=== PATIENT | female | born 1975 | race Caucasian/White ===

== ENCOUNTER 2019-09-02 10:08 | Outpatient (RCR) | payer OTHER, MEDICARE, SELFPAY ==
--- NOTE | 2019-09-02 11:03 | PTOPEVAL ---
Thank you for referring Dea Garcia to [facility]. Please review, sign, date and return this plan of care RODRÍGUEZ. I agree with and certify that the following plan of care is medically necessary. Referring Physician Date Admitting Provider: Attending Provider: Al Brito MD Referring Provider: *PT Outpatient Evaluation Start: 09/02/19 10:11 Freq: Status: Active Protocol: Document 09/02/19 10:11 JESSICA (Rec: 09/02/19 11:03 JESSICA [id number]) Therapy Assessment Status Assessment Status Assessment Status Evaluation Evaluation Information Problem Diagnosis chronic venous edema Onset 08/16/19 Subjective Information Pt. reports she enters today Query Text:As Reported By Patient/ because she needs new stocking Family to control edema. She has noticed recent increase in swelling. She states that she has no current stockings, except for tubigrip stocking that she recieved from therapy a long time ago. She reports mild weakness in her legs. She reports that she does not want to participate in any therapy at this time. Pain Assessment Self Report Self Report Pain Level 0 Pain Score Pain Score 0: Self Report Lower Extremity Muscle Strength Testing General Lower Extremity Strength Gross Lower Extremity Strength bilateral hip flexion 4+/5, bilateral knee flexion 4+/5, bilateral knee extension 4+/5, bilateral ankle dorsiflexion 4+/5 Edema Assessment Location Bilateral Lower Leg(s) Edema Degree 1+ (2 mm or less) Extremity Circumference Assessment Circumference Assessment Location Right Body Part Calf Circumference Comments above the malleoli- 28 cm on the right and 30 cm on the left widest calf- 48cm on the right and 49cm on the left popliteal fossa to floor- 45cm on the right and 45cm on the left Gait Assessment Gait Assessment Ambulation Assistive Devices Cane Weight Bearing Status - Left Full Weight Bearing Status - Right Full Maintains Weight Bearing Status Yes Ambulation Destination In Corridor Ambulation Ability Independe
== END 2019-09-02 14:22 | disposition home or self-care (01) ==
LOC: CHSPT 10:08
PROVIDERS: PCP Internal Medicine; Visit Provider Internal Medicine
DX: R60.9 Edema, unspecified (principal)
CPT/HCPCS: 97161

== ENCOUNTER 2020-07-22 13:45 | Outpatient (CLI) | payer OTHER, MEDICARE, SELFPAY ==
--- NOTE | ~2020-07-22 | XR_ITS ---
XR femur RT min 2V DATE: 07/22/2020 14:20 INDICATION: Chronic right leg pain TECHNIQUE: AP and lateral views COMPARISON: 12/27/2018 right femur FINDINGS: There is approximately 6.7 cm vertical dimension up to 1.3 cm transverse dimension scleroti c lesion of the distal lateral femoral diametaphysis, likely benign sclerotic fibrous cortical defect , stable since 12/27/2018. There is a stable sclerotic lesion of the medial left tibial metaphysis, unchanged since 12/27/2018. No fracture, dislocation, periosteal reaction or bone destruction of the right femur. Normal alignmen t at the right hip and knee joints. IMPRESSION: Stable chronic benign sclerotic lesions of the distal femoral diametaphysis and proximal medial tibial metaphysis, unchanged since 12/27/2018 Reviewed, dictated and finalized at location A. IMPRESSION: Stable chronic benign sclerotic lesions of the distal femoral diame taphysis and proximal medial tibial metaphysis, unchanged since 12/27/2018
--- NOTE | ~2020-07-22 | XR_ITS ---
EXAMINATION: XR knee RT 3V DATE: 07/22/2020 14:21 INDICATION: Right femoral lesion. TECHNIQUE: 3 views of right knee were obtained. COMPARISON: Right knee radiographs 01/19/2014, right tibia and fibula radiographs 07/06/2011 FINDINGS: Bone alignment is normal. No fracture. There is a peripheral sclerotic lesion in distal fem oral metaphysis laterally. There is a peripheral sclerotic lesion in proximal tibial metaphysis poste romedially. There is mild osteoarthritis of medial and lateral compartments characterized by tiny mar ginal osteophytes. No knee joint effusion. IMPRESSION: 1. 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 2. Mild right knee osteoarthritis. Reviewed, dictated and finalized at location A. IMPRESSION: 1. 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 2. Mild right knee osteoarthritis.
== END 2020-07-22 13:46 | disposition home or self-care (01) ==
LOC: CHSIMG 13:49
PROVIDERS: PCP Internal Medicine; Visit Provider Internal Medicine
DX: M89.9 Disorder of bone, unspecified (principal)
CPT/HCPCS: 73552; 73562

== ENCOUNTER 2021-04-08 12:41 | Outpatient (CLI) | payer OTHER, MEDICARE, SELFPAY ==
--- NOTE | ~2021-04-08 | XR_ITS ---
EXAMINATION: XR chest 2V 04/08/2021 13:26 INDICATION: Cough and sinusitis PROCEDURE: 2 view chest COMPARISON: 11/20/2013 FINDINGS: The lungs are clear. The cardiomediastinal silhouette is within normal limits. There are no pleural effusions. There is no pneumothorax suspected. IMPRESSION: 1: NO ACUTE CARDIOPULMONARY DISEASE. Reviewed, dictated and finalized at location A. RVISOR DENTURE DEPARTMENT
--- NOTE | ~2021-04-08 | XR_ITS ---
XR sinus <3V 04/08/2021 13:25 Indication: Cough and sinusitis. Procedure: 5 views of the paranasal sinuses Comparison: No prior studies for comparison. Findings: Paranasal sinuses are pneumatized. No significant opacification or air-fluid levels are dem onstrated. There is leftward nasal septal deviation. Orbits within normal limits. Surrounding osseous structures within normal limits. Impression: 1: No significant abnormality of the paranasal sinuses. Reviewed, dictated and finalized at location A. ICIST ACOUSTICS Impression: 1: No significant abnormality of the paranasal sinuses.
[2021-04-08 13:46] LABS: SARS-CoV-2 RNA PCR Negative (Negative)
== END 2021-04-08 12:42 | disposition home or self-care (01) ==
LOC: CHSLAB 12:45
PROVIDERS: PCP Internal Medicine; Visit Provider Internal Medicine
DX: R05.9 Cough, unspecified (principal); J32.9 Chronic sinusitis, unspecified; Z20.822 Contact with and (suspected) exposure to COVID-19
CPT/HCPCS: 70210; 71046; C9803; U0003; U0005

== ENCOUNTER 2021-05-17 14:32 | Outpatient (CLI) | payer MEDICARE, SELFPAY ==
--- NOTE | ~2021-05-17 | XR_ITS ---
EXAMINATION: XR chest 2V EXAM DATE: 05/17/2021 15:24 INDICATION: COUGH/SOB . TECHNIQUE: Frontal and lateral projections of the chest obtained and reviewed. Comparison is made to prior examination from 04/08/2021. FINDINGS: There is patchy small to moderate amount of bibasilar multifocal airspace disease. There ar e no pleural effusions. The cardiomediastinal silhouette is within normal limits. There is no pneum othorax suspected. The bones and soft tissues are unremarkable. IMPRESSION: Small to moderate amount of bibasilar airspace disease probably pneumonia. Reviewed, dictated and finalized at location G. MOTIVE PAINTER IMPRESSION: Small to moderate amount of bibasilar airspace disease probably pne umonia.
[2021-05-17 15:36] LABS: Basophils Absolute Auto 0.01 K/mm3 (0.00-0.10); Basophils Percent Auto 0.2 % (0.0-1.0); Eosinophils Absolute Auto 0.06 K/mm3 (0.02-0.50); Eosinophils Percent Auto 1.1 % (1.0-6.0); Hematocrit 43.6 % (35.0-49.0); Hemoglobin 14.1 g/dL (12.0-15.0); Immature Granulocyte Absolute 0.02 K/mm3 (0.00-0.00); Immature Granulocyte Percent A 0.4 % (0.0-0.0); Lymphocytes Absolute Auto 2.15 K/mm3 (1.10-4.50); Mean Corpuscular HGB Conc 32.3 g/dL (32.0-36.0); Mean Corpuscular Hemoglobin 29.9 pg (27.0-31.0); Mean Corpuscular Volume 92.6 fL (78.0-102.0); Mean Platelet Volume 10.9 fl (9.2-11.8); Monocytes Absolute Auto 0.47 K/mm3 (0.10-0.90); Monocytes Percent Auto 8.8 % (2.0-11.0); Neutrophils Absolute Auto 2.7 K/mm3 (1.7-7.2); Neutrophils Percent Auto 49.5 % (50.0-70.0); Platelet Count Result 199 K/mm3 (150-420); Red Blood Count 4.71 M/mm3 (4.20-5.40); Red Cell Distribution Width 14.6 % (11.6-14.4); White Blood Count 5.4 K/mm3 (4.8-10.8)
[2021-05-17 16:15] LABS: Influenza A QL RT-PCR Negative (Negative); Influenza B QL RT-PCR Negative (Negative); SARS-CoV-2 RNA PCR Positive (Negative)
[2021-05-17 16:29] LABS: Alanine Aminotransferase 55 U/L (14-59); Albumin Level 3.6 g/dL (3.4-5.0); Alkaline Phosphatase 135 U/L (46-116); Amylase 40 U/L (25-115); Anion Gap 13 mmol/L (8-16); Aspartate Amino Transferase 34 U/L (15-37); Bilirubin,Total 1.7 mg/dL (0.00-1.00); Blood Urea Nitrogen 11 mg/dL (7-18); Calcium 8.8 mg/dL (8.5-10.1); Carbon Dioxide 29 mmol/L (21-32); Chloride 96 mmol/L (98-108); Estimated Glomerular Filt Rate 40; Glucose 141 mg/dL (70-99); Lipase 115 U/L (73-393); Osmolality Calculated 287 mOsm/kg (285-295); Potassium 3.3 mmol/L (3.5-5.1); Sodium 138 mmol/L (136-145); Total Protein 7.2 g/dL (6.4-8.2)
== END 2021-05-17 14:33 | disposition home or self-care (01) ==
LOC: CHSLAB 14:38
PROVIDERS: PCP Internal Medicine; Visit Provider Internal Medicine
DX: U07.1 COVID-19 (principal); R05.9 Cough, unspecified; R10.9 Unspecified abdominal pain; R19.7 Diarrhea, unspecified
CPT/HCPCS: 36415; 71046; 80053; 82150; 83690; 85025; 87502; C9803; U0003; U0005

== ENCOUNTER 2021-05-17 17:33 | Emergency (ER) | payer MEDICARE, SELFPAY ==
[2021-05-17 18:00] VITALS: BP 154/89; PULSE 108; RESP 20; TEMP 36.5; O2SAT 98
--- NOTE | 2021-05-17 18:21 | ED.NAVMDI ---
HPI - Nausea/Vomiting/Diarrhea General Chief complaint: Nausea/Vomiting/Diarrhea Stated complaint: Dr Brito sent Time Seen by Provider: 05/17/21 18:23 Source: patient Mode of arrival: ambulatory Limitations: no limitations History of Present Illness HPI Narrative: this is a 45-year-old female that was sent to the ER by her primary care physician after she was evaluated via telemedicine, the patient had a positive COVID done today patient had CBC as well as a CMP performed today, the patient presents with a cough with 1 episode of vomiting with no nausea currently had an episode of diarrhea with the no fever chills her O2 sats are 98% on room air. No chest pain no abdominal pain no flank pain. MD elicited complaint: nausea, diarrhea and other ( cough and congestion) Related Data Home Medications Medication Instructions Recorded Confirmed Calcium With Vitamin D3 125 mcg PO DAILY 05/17/21 05/17/21 atorvastatin [Lipitor] 10 mg PO DAILY 05/17/21 05/17/21 glimepiride 2 mg PO DAILY 05/17/21 05/17/21 ketoconazole 1 applic TOPICAL BID 05/17/21 05/17/21 metformin 500 mg PO BID 05/17/21 05/17/21 metoprolol succinate 25 mg PO DAILY 05/17/21 05/17/21 montelukast 10 mg PO DAILY 05/17/21 05/17/21 semaglutide [Rybelsus] 14 mg PO DAILY 05/17/21 05/17/21 spironolacton-hydrochlorothiaz 25 tablet PO DAILY 05/17/21 05/17/21 Allergies Allergy/AdvReac Type Severity Reaction Status Date / Time No Known Allergies Allergy Unknown Verified 05/17/21 18:03 Review of Systems Review of Systems: All systems reviewed & are unremarkable except as noted in HPI and below PMFSH Past Medical History Medical History Diabetes mellitus Family History Family History Father Hypertension Family history of elevated blood lipids Family history of diabetes mellitus in first degree relative Mother Hypertension Family history of elevated blood lipids Cerebrovascular accident Family history of diabetes mellitus in first degree relative Family history of coronary artery disease, Onset Age: 200 Patient's mother is Grandparent Cerebrovascular accident Carcinoma of colon, Onset Age: 53 Family history of coronary artery disease Other Diabetes mellitus Family history of cardiovascular disease Family history of malignant neoplasm Social History Social History Smoking status: Never smoker Alcohol intake: never Exam Const: General: healthy appearing, no acute distress and alert Orientation/consciousness: patient oriented x3 HENMT: Head: normal to inspection Eyes: Pupils: Equal, round and reactive pupils present EOM: EOMs intact bilaterally Direct Ophthalmoscopy: no photophobia Neck: Neck: normal visual inspection, no lymphadenopathy and no meningeal signs Chest: Chest palpation & inspection: normal inspection of the chest Resp: Effort & Inspection: normal respiratory effort Auscultation: clear to auscultation bilaterally Cardio: Rate: regular rate Rhythm: regular rhythm GI: GI Palp: Yes Soft to palpation Percussion: Yes normal to percussion : General: Yes no CVA tenderness Urinary Catheter: Urinary Catheter: patent and draining Back/Spine/Pelvis: Back: no CVA tenderness Skin: General skin exam: normal color Rashes: no rashes Neuro: General: patient oriented x3 Extrem: General: normal to inspection and no pedal edema Psych: Mental Status: mental status grossly normal Affect: normal affect Thought content: Yes Normal thought content present Course Course Emergency Course: labs x-rays reviewed with patient patient is positive for COVID x-ray shows that airspace disease possibly pneumonia will give a dose of ceftriaxone. Vital Signs Vital signs: Vital Signs Temperature 36.5 C 05/17/21 18:00 Pulse Rate 108 H 05/17/21
[2021-05-17] MEDS: SODIUM CHLORIDE 0.9% IV 1,000 ML 999 ML IV CONT (18:39)
[2021-05-17] MEDS: POTASSIUM CHLORIDE 20 MEQ TABLET 40 MEQ PO (19:20)
--- NOTE | 2021-05-17 19:20 | PC.NURSE ---
Report given to Tk MEDINA
--- NOTE | 2021-05-17 19:30 | PC.NURSE ---
Took report on pt at this time. SD/C orders alredy recieved. Pt resting comfortable on stretcher. IV infusing. No complaints of pain or discomfort lthus far.
[2021-05-17 20:27] VITALS: BP 138/97; PULSE 106; RESP 24; TEMP 36.5; O2SAT 97
== END 2021-05-17 20:29 | disposition home or self-care (01) ==
PROVIDERS: Emergency Provider Emergency Medicine; PCP Internal Medicine
DX: U07.1 COVID-19 (principal); J18.9 Pneumonia, unspecified organism; E11.9 Type 2 diabetes mellitus without complications
CPT/HCPCS: 36415; 71046; 80053; 82150; 83690; 85025; 87502; 96361; 96374; 99283; 99284; A9270; C9803; J0696; J7030; U0003; U0005

== ENCOUNTER 2021-05-26 09:58 | Outpatient (CLI) | payer MEDICARE, SELFPAY ==
--- NOTE | ~2021-05-26 | CT_ITS ---
EXAMINATION: CT abdomen pelvis wo con DATE: 05/26/2021 10:37 INDICATION: Epigastric pain, nausea, vomiting, diarrhea for one to 2 weeks TECHNIQUE: Computed tomography (CT) of the abdomen and pelvis was performed without intravenous contr ast. Automated exposure control and iterative reconstruction technique were employed. Exam dose: 133 1.97 mGy-cm total exam DLP. COMPARISON: None. FINDINGS: There are occasional focal areas of infiltrate, atelectasis and/or fibrotic change in the p eripheral lower lung zones, right greater than left. Normal heart size. No pericardial or pleural effusion. Status post cholecystectomy. No bile duct dilatation. There is hepatomegaly and diffuse hepatic steatosis. Status post cholecystectomy. Normal splenic size. No pancreatic mass lesion, calcification or ductal dilatation. Normal morphology of the adrenal glands. No renal mass lesion or urinary tract calculus or hydroureteronephrosis. The urinary bladder is relat ively evacuated, unremarkable. The left ovary is not visualized. The right ovary measures approximately 3.9 x 5.4 cm dimension. The uterus is unremarkable. Normal caliber of the abdominal aorta. No intraperitoneal or retroperitoneal or pelvic mass lesion or adenopathy or ascites. Normal appendix. Mild colonic diverticulosis; no CT evidence of diverticulitis. No bowel obstruction is detected. No intraperitoneal free air. There is a prominent fat-containing midline ventral infraumbilical abdominal wall hernia measuring up to 8.2 cm transverse dimension, 5.4 cm anteroposterior dimension and up to 9.4 cm vertical height. T he mouth of this hernia measures approximately 1.3 cm. There is mildly increased density of fat withi n and surrounding this hernia and in the subjacent anterior intraperitoneal or mesenteric fat, which may indicate some inflammation or fat necrosis due to incarceration. Degenerative changes of the thoracic spine. Severe degenerative disc disease at L5-S1. No suspicious osteolytic or osteoblastic lesions. IMPRESSION: Large midline infraumbilical fat-containing ventral abdominal wall hernia with some infl ammation, which may be indicative of incarceration Hepatomegaly, hepatic steatosis Status post cholecystectomy Mild colonic diverticulosis; no evidence of diverticulitis Reviewed, dictated and finalized at Location A. Reviewed, dictated and finalized at location A. NING AND DEVELOPMENT OFFICER IMPRESSION: Large midline infraumbilical fat-containing ventral abdominal wall hernia with some inflammation, which may be indicative of incarceration Hepatomegaly, hepatic steatosis Status post cholecystectomy Mild colonic diverticulosis; no evidence of diverticulitis
== END 2021-05-26 09:59 | disposition home or self-care (01) ==
LOC: CHSIMG 10:01
PROVIDERS: PCP Internal Medicine; Visit Provider Internal Medicine
DX: R10.9 Unspecified abdominal pain (principal)
CPT/HCPCS: 74176

== ENCOUNTER 2021-05-27 08:03 | Outpatient (CLI) | payer MEDICARE, SELFPAY | END 2021-05-27 08:04 | disposition home or self-care (01) | LOC: CHSLAB 08:05 | PROVIDERS: PCP Internal Medicine; Visit Provider Internal Medicine | DX: R19.7 Diarrhea, unspecified (principal) | CPT/HCPCS: 87324 ==

== ENCOUNTER 2021-06-08 10:04 | Outpatient (CLI) | payer OTHER, MEDICARE, SELFPAY ==
[2021-06-08 10:27] LABS: Basophils Absolute Auto 0.05 K/mm3 (0.00-0.10); Basophils Percent Auto 0.9 % (0.0-1.0); Eosinophils Absolute Auto 0.24 K/mm3 (0.02-0.50); Eosinophils Percent Auto 4.2 % (1.0-6.0); Hematocrit 37.5 % (35.0-49.0); Immature Granulocyte Absolute 0.02 K/mm3 (0.00-0.00); Immature Granulocyte Percent A 0.3 % (0.0-0.0); Lymphocytes Absolute Auto 1.44 K/mm3 (1.10-4.50); Lymphocytes Percent Auto 25.2 % (18.0-42.0); Mean Corpuscular Hemoglobin 30.9 pg (27.0-31.0); Mean Corpuscular Volume 96.6 fL (78.0-102.0); Mean Platelet Volume 10.5 fl (9.2-11.8); Monocytes Absolute Auto 0.43 K/mm3 (0.10-0.90); Monocytes Percent Auto 7.5 % (2.0-11.0); Neutrophils Absolute Auto 3.5 K/mm3 (1.7-7.2); Neutrophils Percent Auto 61.9 % (50.0-70.0); Platelet Count Result 195 K/mm3 (150-420); Red Blood Count 3.88 M/mm3 (4.20-5.40); White Blood Count 5.7 K/mm3 (4.8-10.8)
[2021-06-08 11:08] LABS: Alanine Aminotransferase 58 U/L (14-59); Albumin Level 3.3 g/dL (3.4-5.0); Alkaline Phosphatase 97 U/L (46-116); Anion Gap 10 mmol/L (8-16); Aspartate Amino Transferase 24 U/L (15-37); Bilirubin,Total 1.2 mg/dL (0.00-1.00); Blood Urea Nitrogen 16 mg/dL (7-18); Calcium 9.3 mg/dL (8.5-10.1); Carbon Dioxide 30 mmol/L (21-32); Chloride 103 mmol/L (98-108); Estimated Glomerular Filt Rate 48; Glucose 152 mg/dL (70-99); Osmolality Calculated 300 mOsm/kg (285-295); Potassium 3.5 mmol/L (3.5-5.1); Sodium 143 mmol/L (136-145); Total Protein 6.4 g/dL (6.4-8.2)
== END 2021-06-08 10:05 | disposition home or self-care (01) ==
LOC: CHSLAB 10:08
PROVIDERS: PCP Internal Medicine; Visit Provider Internal Medicine
DX: R94.5 Abnormal results of liver function studies (principal)
CPT/HCPCS: 36415; 80053; 85025

== ENCOUNTER 2021-07-19 14:09 | Outpatient (CLI) | payer OTHER, MEDICARE, SELFPAY ==
[2021-07-19 14:30] LABS: Basophils Absolute Auto 0.06 K/mm3 (0.00-0.10); Basophils Percent Auto 0.7 % (0.0-1.0); Eosinophils Absolute Auto 0.17 K/mm3 (0.02-0.50); Eosinophils Percent Auto 2.1 % (1.0-6.0); Hematocrit 39.7 % (35.0-49.0); Hemoglobin 12.7 g/dL (12.0-15.0); Immature Granulocyte Absolute 0.04 K/mm3 (0.00-0.00); Immature Granulocyte Percent A 0.5 % (0.0-0.0); Lymphocytes Absolute Auto 1.92 K/mm3 (1.10-4.50); Lymphocytes Percent Auto 23.7 % (18.0-42.0); Mean Corpuscular Hemoglobin 30.9 pg (27.0-31.0); Mean Corpuscular Volume 96.6 fL (78.0-102.0); Mean Platelet Volume 10.1 fl (9.2-11.8); Monocytes Absolute Auto 0.67 K/mm3 (0.10-0.90); Monocytes Percent Auto 8.3 % (2.0-11.0); Neutrophils Absolute Auto 5.3 K/mm3 (1.7-7.2); Neutrophils Percent Auto 64.7 % (50.0-70.0); Platelet Count Result 257 K/mm3 (150-420); Red Blood Count 4.11 M/mm3 (4.20-5.40); Red Cell Distribution Width 13.8 % (11.6-14.4); White Blood Count 8.1 K/mm3 (4.8-10.8)
[2021-07-19 15:11] LABS: Alanine Aminotransferase 40 U/L (14-59); Albumin Level 3.4 g/dL (3.4-5.0); Alkaline Phosphatase 131 U/L (46-116); Anion Gap 7 mmol/L (8-16); Aspartate Amino Transferase 19 U/L (15-37); Bilirubin,Total 1.2 mg/dL (0.00-1.00); Blood Urea Nitrogen 14 mg/dL (7-18); Calcium 9.2 mg/dL (8.5-10.1); Carbon Dioxide 32 mmol/L (21-32); Chloride 103 mmol/L (98-108); Estimated Glomerular Filt Rate 48; Glucose 128 mg/dL (70-99); Magnesium 1.8 mg/dL (1.8-2.4); Osmolality Calculated 296 mOsm/kg (285-295); Sodium 142 mmol/L (136-145); Total Protein 6.3 g/dL (6.4-8.2)
== END 2021-07-19 14:10 | disposition home or self-care (01) ==
LOC: CHSLAB 14:13
PROVIDERS: PCP Internal Medicine; Visit Provider Internal Medicine
DX: K76.0 Fatty (change of) liver, not elsewhere classified (principal); E11.9 Type 2 diabetes mellitus without complications; E88.09 Other disorders of plasma-protein metabolism, not elsewhere classified
CPT/HCPCS: 36415; 80053; 83735; 85025

== ENCOUNTER 2021-08-24 16:35 | Outpatient (CLI) | payer OTHER, MEDICARE, SELFPAY ==
[2021-08-24 16:55] LABS: Basophils Absolute Auto 0.05 K/mm3 (0.00-0.10); Basophils Percent Auto 0.5 % (0.0-1.0); Eosinophils Absolute Auto 0.24 K/mm3 (0.02-0.50); Eosinophils Percent Auto 2.5 % (1.0-6.0); Hematocrit 38.6 % (35.0-49.0); Hemoglobin 12.5 g/dL (12.0-15.0); Immature Granulocyte Absolute 0.04 K/mm3 (0.00-0.00); Immature Granulocyte Percent A 0.4 % (0.0-0.0); Lymphocytes Percent Auto 22.1 % (18.0-42.0); Mean Corpuscular HGB Conc 32.4 g/dL (32.0-36.0); Mean Corpuscular Hemoglobin 30.9 pg (27.0-31.0); Mean Corpuscular Volume 95.3 fL (78.0-102.0); Mean Platelet Volume 10.6 fl (9.2-11.8); Monocytes Absolute Auto 0.71 K/mm3 (0.10-0.90); Monocytes Percent Auto 7.5 % (2.0-11.0); Neutrophils Absolute Auto 6.4 K/mm3 (1.7-7.2); Platelet Count Result 239 K/mm3 (150-420); Red Blood Count 4.05 M/mm3 (4.20-5.40); Red Cell Distribution Width 13.8 % (11.6-14.4); White Blood Count 9.5 K/mm3 (4.8-10.8)
[2021-08-24 17:25] LABS: Hemoglobin A1C 6.4 % (<5.7)
[2021-08-24 18:10] LABS: Alanine Aminotransferase 33 U/L (14-59); Albumin Level 3.4 g/dL (3.4-5.0); Alkaline Phosphatase 122 U/L (46-116); Anion Gap 10 mmol/L (8-16); Aspartate Amino Transferase 17 U/L (15-37); Bilirubin,Total 1.5 mg/dL (0.00-1.00); Blood Urea Nitrogen 18 mg/dL (7-18); Calcium 9.4 mg/dL (8.5-10.1); Carbon Dioxide 29 mmol/L (21-32); Chloride 100 mmol/L (98-108); Cholesterol 127 mg/dL (0-200); Estimated Glomerular Filt Rate 47; Glucose 122 mg/dL (70-99); HDL Direct 46 mg/dL (40-60); LDL Cholesterol Calculated 49 mg/dL (<130); Osmolality Calculated 290 mOsm/kg (285-295); Potassium 3.8 mmol/L (3.5-5.1); Sodium 139 mmol/L (136-145); Total Protein 6.9 g/dL (6.4-8.2); Triglycerides 160 mg/dL (0-150)
== END 2021-08-24 16:36 | disposition home or self-care (01) ==
LOC: CHSLAB 16:37
PROVIDERS: PCP Internal Medicine; Visit Provider Internal Medicine
DX: E11.9 Type 2 diabetes mellitus without complications (principal); N28.9 Disorder of kidney and ureter, unspecified
CPT/HCPCS: 36415; 80053; 80061; 83036; 85025

== ENCOUNTER 2021-12-21 09:51 | Outpatient (CLI) | payer OTHER, MEDICARE, SELFPAY ==
[2021-12-21 10:11] LABS: Basophils Absolute Auto 0.05 K/mm3 (0.00-0.10); Basophils Percent Auto 0.6 % (0.0-1.0); Eosinophils Absolute Auto 0.21 K/mm3 (0.02-0.50); Eosinophils Percent Auto 2.4 % (1.0-6.0); Hematocrit 38.5 % (35.0-49.0); Hemoglobin 12.4 g/dL (12.0-15.0); Immature Granulocyte Absolute 0.04 K/mm3 (0.00-0.00); Immature Granulocyte Percent A 0.5 % (0.0-0.0); Mean Corpuscular HGB Conc 32.2 g/dL (32.0-36.0); Mean Corpuscular Hemoglobin 30.2 pg (27.0-31.0); Mean Corpuscular Volume 93.9 fL (78.0-102.0); Mean Platelet Volume 10.3 fl (9.2-11.8); Monocytes Absolute Auto 0.57 K/mm3 (0.10-0.90); Monocytes Percent Auto 6.6 % (2.0-11.0); Neutrophils Absolute Auto 5.9 K/mm3 (1.7-7.2); Neutrophils Percent Auto 67.9 % (50.0-70.0); Platelet Count Result 215 K/mm3 (150-420); Red Cell Distribution Width 14.2 % (11.6-14.4); White Blood Count 8.6 K/mm3 (4.8-10.8)
[2021-12-21 11:09] LABS: Creatinine Urine 58.14 mg/dL (40-278); MALB Creatinine Ratio 22.3 mg/g (0-30); Microalbumin Urine Random < 13.0 mg/L
[2021-12-21 12:02] LABS: Alanine Aminotransferase 35 U/L (14-59); Albumin Level 3.2 g/dL (3.4-5.0); Alkaline Phosphatase 141 U/L (46-116); Anion Gap 9 mmol/L (8-16); Aspartate Amino Transferase 21 U/L (15-37); Bilirubin,Total 0.9 mg/dL (0.00-1.00); Blood Urea Nitrogen 19 mg/dL (7-18); Calcium 9.2 mg/dL (8.5-10.1); Carbon Dioxide 30 mmol/L (21-32); Chloride 100 mmol/L (98-108); Cholesterol 140 mg/dL (0-200); Estimated Glomerular Filt Rate 44; Glucose 184 mg/dL (70-99); HDL Direct 46 mg/dL (40-60); LDL Cholesterol Calculated 60 mg/dL (<130); Magnesium 1.7 mg/dL (1.8-2.4); Osmolality Calculated 295 mOsm/kg (285-295); Potassium 3.5 mmol/L (3.5-5.1); Sodium 139 mmol/L (136-145); Total Protein 6.8 g/dL (6.4-8.2); Triglycerides 169 mg/dL (0-150)
== END 2021-12-21 09:52 | disposition home or self-care (01) ==
LOC: CHSLAB 09:55
PROVIDERS: PCP Internal Medicine; Visit Provider Internal Medicine
DX: E78.5 Hyperlipidemia, unspecified (principal); I10 Essential (primary) hypertension; E11.9 Type 2 diabetes mellitus without complications
CPT/HCPCS: 36415; 80053; 80061; 82043; 83036; 83735; 85025

== ENCOUNTER 2022-05-03 15:20 | Outpatient (CLI) | payer OTHER, MEDICARE, SELFPAY ==
[2022-05-03 15:38] LABS: Basophils Absolute Auto 0.04 K/mm3 (0.00-0.10); Basophils Percent Auto 0.6 % (0.0-1.0); Eosinophils Absolute Auto 0.12 K/mm3 (0.02-0.50); Eosinophils Percent Auto 1.9 % (1.0-6.0); Hematocrit 40.3 % (35.0-49.0); Hemoglobin 13.2 g/dL (12.0-15.0); Immature Granulocyte Absolute 0.03 K/mm3 (0.00-0.00); Immature Granulocyte Percent A 0.5 % (0.0-0.0); Lymphocytes Absolute Auto 1.25 K/mm3 (1.10-4.50); Lymphocytes Percent Auto 20.3 % (18.0-42.0); Mean Corpuscular HGB Conc 32.8 g/dL (32.0-36.0); Mean Corpuscular Hemoglobin 30.6 pg (27.0-31.0); Mean Corpuscular Volume 93.3 fL (78.0-102.0); Mean Platelet Volume 9.7 fl (9.2-11.8); Monocytes Absolute Auto 0.59 K/mm3 (0.10-0.90); Monocytes Percent Auto 9.6 % (2.0-11.0); Neutrophils Absolute Auto 4.1 K/mm3 (1.7-7.2); Neutrophils Percent Auto 67.1 % (50.0-70.0); Platelet Count Result 207 K/mm3 (150-420); Red Blood Count 4.32 M/mm3 (4.20-5.40); Red Cell Distribution Width 14.5 % (11.6-14.4); White Blood Count 6.2 K/mm3 (4.8-10.8)
[2022-05-03 16:27] LABS: Alanine Aminotransferase 58 U/L (14-59); Albumin Level 3.3 g/dL (3.4-5.0); Alkaline Phosphatase 142 U/L (46-116); Anion Gap 6 mmol/L (8-16); Aspartate Amino Transferase 37 U/L (15-37); Bilirubin,Total 1.4 mg/dL (0.00-1.00); Blood Urea Nitrogen 17 mg/dL (7-18); Calcium 9.3 mg/dL (8.5-10.1); Carbon Dioxide 33 mmol/L (21-32); Chloride 100 mmol/L (98-108); Estimated Glomerular Filt Rate 48; Glucose 154 mg/dL (70-99); Magnesium 1.6 mg/dL (1.8-2.4); Osmolality Calculated 292 mOsm/kg (285-295); Potassium 3.8 mmol/L (3.5-5.1); Sodium 139 mmol/L (136-145); Thyroid Stimulating Hormone 2.59 uIU/mL (0.36-3.74); Total Protein 6.7 g/dL (6.4-8.2)
[2022-05-03 16:30] LABS: Hemoglobin A1C 7.4 % (<5.7)
== END 2022-05-03 15:21 | disposition home or self-care (01) ==
LOC: CHSLAB 15:23
PROVIDERS: PCP Internal Medicine; Visit Provider Internal Medicine
DX: I10 Essential (primary) hypertension (principal); E11.9 Type 2 diabetes mellitus without complications
CPT/HCPCS: 36415; 80053; 83036; 83735; 84443; 85025

== ENCOUNTER 2022-08-01 12:32 | Outpatient (CLI) | payer OTHER, MEDICARE, SELFPAY ==
[2022-08-01 13:12] LABS: Hemoglobin A1C 7.8 % (<5.7)
[2022-08-01 13:58] LABS: Alanine Aminotransferase 53 U/L (14-59); Albumin Level 3.3 g/dL (3.4-5.0); Alkaline Phosphatase 128 U/L (46-116); Anion Gap 9 mmol/L (8-16); Aspartate Amino Transferase 27 U/L (15-37); Bilirubin,Total 1.3 mg/dL (0.00-1.00); Blood Urea Nitrogen 17 mg/dL (7-18); Carbon Dioxide 31 mmol/L (21-32); Chloride 102 mmol/L (98-108); Cholesterol 152 mg/dL (0-200); Estimated Glomerular Filt Rate 48; Glucose 184 mg/dL (70-99); HDL Direct 45 mg/dL (40-60); LDL Cholesterol Calculated 64 mg/dL (<130); Magnesium 1.6 mg/dL (1.8-2.4); Osmolality Calculated 300 mOsm/kg (285-295); Potassium 3.8 mmol/L (3.5-5.1); Sodium 142 mmol/L (136-145); Thyroid Stimulating Hormone 1.91 uIU/mL (0.36-3.74); Total Protein 6.6 g/dL (6.4-8.2); Triglycerides 214 mg/dL (0-150)
== END 2022-08-01 12:33 | disposition home or self-care (01) ==
PROVIDERS: PCP Internal Medicine; Visit Provider Internal Medicine
DX: I10 Essential (primary) hypertension (principal); E11.9 Type 2 diabetes mellitus without complications; E78.5 Hyperlipidemia, unspecified; E83.42 Hypomagnesemia
CPT/HCPCS: 36415; 80053; 80061; 83036; 83735; 84443

== ENCOUNTER 2023-06-13 10:54 | Outpatient (CLI) | payer OTHER, MEDICARE, SELFPAY ==
--- NOTE | ~2023-06-13 | XR_ITS ---
Lumbosacral Spine: AP and lateral views Clinical History: Pain Findings: The normal lordotic curve is maintained. The vertebral bodies and posterior elements are i ntact. There is moderate degenerative disc narrowing L5-S1, with moderate facet arthropathy throughou t the lumbar spine. The sacroiliac joints are normally outlined. Impression: Mild to moderate degenerative change, as above. Reviewed, dictated and finalized at location M. RANCE VERIFIER Impression: Mild to moderate degenerative change, as above.
--- NOTE | ~2023-06-13 | XR_ITS ---
Right Knee Technique: AP, lateral, and sunrise views were obtained. Clinical History: Pain COMPARISON: 07/22/2020 Findings: No fracture or dislocation is seen. Osseous alignment is anatomic. There are stable sclerot ic, cortically based lesions at the lateral aspect of the distal femur, and the medial aspect of the proximal tibia. Joint spaces are preserved without degenerative or erosive change. Soft tissues are u nremarkable. No joint effusion is seen. Impression: No acute abnormality. 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 Reviewed, dictated and finalized at location M. OR OPERATIONS MANAGER Impression: No acute abnormality. Chronic, benign sclerotic lesions of the distal femur and proximal tibia, likel y chronic nonossifying fibromas.
--- NOTE | ~2023-06-13 | XR_ITS ---
Left Knee Technique: AP, lateral, and sunrise views were obtained. Clinical History: Pain Findings: No fracture or dislocation is seen. Osseous alignment is anatomic. There is minimal lateral joint line spurring. Soft tissues are unremarkable. No joint effusion is seen. Impression: Minimal lateral joint line spurring. Reviewed, dictated and finalized at [facility]. OMER EQUIPMENT ENGINEER Impression: Minimal lateral joint line spurring.
[2023-06-13 11:09] LABS: Basophils Absolute Auto 0.07 K/mm3 (0.00-0.10); Basophils Percent Auto 0.7 % (0.0-1.0); Hematocrit 38.2 % (35.0-49.0); Hemoglobin 12.5 g/dL (12.0-15.0); Immature Granulocyte Absolute 0.05 K/mm3 (0.00-0.00); Immature Granulocyte Percent A 0.5 % (0.0-0.0); Lymphocytes Absolute Auto 2.11 K/mm3 (1.10-4.50); Lymphocytes Percent Auto 20.7 % (18.0-42.0); Mean Corpuscular HGB Conc 32.7 g/dL (32.0-36.0); Mean Corpuscular Hemoglobin 30.2 pg (27.0-31.0); Mean Corpuscular Volume 92.3 fL (78.0-102.0); Mean Platelet Volume 9.8 fl (9.2-11.8); Monocytes Absolute Auto 0.65 K/mm3 (0.10-0.90); Monocytes Percent Auto 6.4 % (2.0-11.0); Neutrophils Absolute Auto 7.1 K/mm3 (1.7-7.2); Neutrophils Percent Auto 69.7 % (50.0-70.0); Platelet Count Result 225 K/mm3 (150-420); Red Blood Count 4.14 M/mm3 (4.20-5.40); Red Cell Distribution Width 15.4 % (11.6-14.4); White Blood Count 10.2 K/mm3 (4.8-10.8)
[2023-06-13 11:18] LABS: Appearance Urine Clear (Clear); Bilirubin Urine Negative (Negative); Blood Urine Negative (Negative); Color Urine Yellow (Yellow); Glucose Urine UA Negative (Negative); Ketones Urine Negative (Negative); Leukocyte Esterase Ur Negative LEU/UL (Negative); Nitrate Urine Negative (Negative); Protein Urine Negative (Negative); Urobilinogen Urine 0.2 mg/dL (0.2-1.0)
[2023-06-13 11:22] LABS: Add Urine Microscopic? NO
[2023-06-13 12:14] LABS: Alanine Aminotransferase 40 U/L (14-59); Albumin Level 3.1 g/dL (3.4-5.0); Alkaline Phosphatase 118 U/L (46-116); Anion Gap 9 mmol/L (8-16); Aspartate Amino Transferase 29 U/L (15-37); Bilirubin,Total 1.4 mg/dL (0.00-1.00); Blood Urea Nitrogen 16 mg/dL (7-18); Carbon Dioxide 29 mmol/L (21-32); Chloride 102 mmol/L (98-108); Estimated Glomerular Filt Rate 50; Glucose 184 mg/dL (70-99); Osmolality Calculated 296 mOsm/kg (285-295); Sodium 140 mmol/L (136-145); Total Protein 6.5 g/dL (6.4-8.2)
[2023-06-13 12:16] LABS: Beta HCG Quantitative < 1.00 mIU/mL (0-6)
[2023-06-16 07:20] LABS: FSH 9.3 mIU/mL (***); LH 9.4 mIU/mL (***)
[2023-06-21 16:03] LABS: Estrogen 359 pg/mL
== END 2023-06-13 10:55 | disposition home or self-care (01) ==
LOC: CHSLAB 10:58
PROVIDERS: PCP Internal Medicine; Visit Provider Internal Medicine
DX: N91.2 Amenorrhea, unspecified (principal); R10.30 Lower abdominal pain, unspecified; M54.50 Low back pain, unspecified; M25.562 Pain in left knee; M25.561 Pain in right knee; M89.9 Disorder of bone, unspecified
CPT/HCPCS: 36415; 72100; 73562; 80053; 81003; 82672; 83001; 83002; 84702; 85025

== ENCOUNTER 2024-01-10 15:41 | Outpatient (CLI) | payer OTHER, MEDICARE, SELFPAY ==
[2024-01-10 16:00] LABS: Basophils Absolute Auto 0.05 K/mm3 (0.00-0.10); Basophils Percent Auto 0.6 % (0.0-1.0); Eosinophils Absolute Auto 0.22 K/mm3 (0.02-0.50); Eosinophils Percent Auto 2.6 % (1.0-6.0); Hematocrit 37.7 % (35.0-49.0); Hemoglobin 12.3 g/dL (12.0-15.0); Immature Granulocyte Absolute 0.04 K/mm3 (0.00-0.00); Immature Granulocyte Percent A 0.5 % (0.0-0.0); Lymphocytes Absolute Auto 1.87 K/mm3 (1.10-4.50); Lymphocytes Percent Auto 22.3 % (18.0-42.0); Mean Corpuscular HGB Conc 32.6 g/dL (32-36); Mean Platelet Volume 10.2 fl (9.2-11.8); Monocytes Absolute Auto 0.62 K/mm3 (0.10-0.90); Monocytes Percent Auto 7.4 % (2.0-11.0); Neutrophils Absolute Auto 5.58 K/mm3 (1.70-7.20); Neutrophils Percent Auto 66.6 % (50.0-70.0); Platelet Count Result 220 K/mm3 (150-420); Red Blood Count 3.97 M/mm3 (4.20-5.40); Red Cell Distribution Width 13.9 % (11.6-14.4); White Blood Count 8.4 K/mm3 (4.8-10.8)
[2024-01-10 16:47] LABS: Alanine Aminotransferase 42 U/L (14-59); Albumin Level 2.9 g/dL (3.4-5.0); Alkaline Phosphatase 133 U/L (46-116); Anion Gap 9 mmol/L (4-12); Aspartate Amino Transferase 28 U/L (15-37); Bilirubin,Total 0.7 mg/dL (0.00-1.00); Blood Urea Nitrogen 13 mg/dL (7-18); Calcium 8.8 mg/dL (8.5-10.1); Carbon Dioxide 28 mmol/L (21-32); Chloride 104 mmol/L (98-108); Cholesterol 161 mg/dL (0-200); Estimated Glomerular Filt Rate 37; Glucose 287 mg/dL (70-99); HDL Direct 42 mg/dL (40-60); LDL Cholesterol Calculated 78 mg/dL (<130); Osmolality Calculated 302 mOsm/kg (285-295); Potassium 3.9 mmol/L (3.5-5.1); Sodium 141 mmol/L (136-145); Total Protein 6.2 g/dL (6.4-8.2); Triglycerides 206 mg/dL (0-150)
[2024-01-10 16:58] LABS: Hemoglobin A1C 10.6 % (<5.7)
[2024-01-10 17:14] LABS: Add Urine Microscopic? YES; Appearance Urine Clear (Clear); Bilirubin Urine Negative (Negative); Blood Urine Negative (Negative); Color Urine Light Yellow (Yellow); Glucose Urine UA 2+ (Negative); Ketones Urine Negative (Negative); Leukocyte Esterase Ur Trace (Negative); Nitrate Urine Negative (Negative); Protein Urine Negative (Negative); Specific Grav Ur 1.025 (1.010-1.020)
[2024-01-10 17:18] LABS: Bacteria Urine 2+ /hpf; RBC Urine 0-2 /hpf (0-2); Squamous Epithelial Cell Urine Few /hpf (Few)
== END 2024-01-10 15:42 | disposition home or self-care (01) ==
PROVIDERS: PCP Internal Medicine; Visit Provider Internal Medicine
DX: I10 Essential (primary) hypertension (principal); E11.9 Type 2 diabetes mellitus without complications
CPT/HCPCS: 36415; 80053; 80061; 81001; 83036; 85025

== ENCOUNTER 2024-01-19 11:49 | Outpatient (CLI) | payer OTHER, MEDICARE, SELFPAY ==
--- NOTE | ~2024-01-19 | XR_ITS ---
Left Hand Technique: PA, oblique, and lateral views were obtained. Clinical History: Pain Findings: No acute fracture or dislocation is seen. Osseous alignment is anatomic. Joint spaces are p reserved. Soft tissues are unremarkable. Impression: Unremarkable left hand. Reviewed, dictated and finalized at location M. Impression: Unremarkable left hand.
--- NOTE | ~2024-01-19 | XR_ITS ---
Right Hand Technique: PA, oblique, and lateral views were obtained. Clinical History: Pain Findings: No acute fracture or dislocation is seen. Osseous alignment is anatomic. Joint spaces are p reserved. Soft tissues are unremarkable. Impression: Unremarkable right hand. Reviewed, dictated and finalized at location M. Impression: Unremarkable right hand.
== END 2024-01-19 11:50 | disposition home or self-care (01) ==
LOC: CHSIMG 11:52
PROVIDERS: PCP Nurse Practitioner Family; Visit Provider Nurse Practitioner Family
DX: M79.642 Pain in left hand (principal); M79.641 Pain in right hand
CPT/HCPCS: 73120

== ENCOUNTER 2024-03-07 15:20 | Outpatient (CLI) | payer OTHER, MEDICARE, SELFPAY ==
--- NOTE | ~2024-03-07 | XR_ITS ---
CHEST RADIOGRAPH, PA AND LATERAL CLINICAL HISTORY: Productive Cough . COMPARISON: 05/17/2021 TECHNIQUE: PA and lateral views of the chest. FINDINGS The cardiomediastinal silhouette is unremarkable. The lungs are clear. Visualized osseous structures and soft tissues are unremarkable. IMPRESSION: No focal infiltrate or effusion. Reviewed, dictated and finalized at location A. LING ASSOCIATE
== END 2024-03-07 15:21 | disposition home or self-care (01) ==
PROVIDERS: PCP Nurse Practitioner Family; Visit Provider Nurse Practitioner Family
DX: R05.8 Other specified cough (principal)
CPT/HCPCS: 71046

== ENCOUNTER 2024-08-08 15:42 | Emergency (ER) | payer OTHER, MEDICARE, SELFPAY ==
[2024-08-08] VITALS (24 sets, daily range): BP systolic 128–174; BP diastolic 82–109; PULSE 65–118; RESP 18–28; TEMP 36.3–37.2; O2SAT 92–100
--- NOTE | ~2024-08-08 | XR_ITS ---
CHEST RADIOGRAPH CLINICAL HISTORY: Dyspnea, cough . COMPARISON: 03/07/2024 TECHNIQUE: Single portable view of the chest. FINDINGS The cardiomediastinal silhouette is unremarkable. The lungs are clear. IMPRESSION: No focal infiltrate or effusion. Reviewed, dictated and finalized at location A.
--- NOTE | ~2024-08-08 | CT_ITS ---
EXAMINATION: CTA chest PE protocol DATE: 08/08/2024 17:52 CDT INDICATION: Shortness of breath, chest pain and elevated d-dimer TECHNIQUE: Computed tomographic angiography (CTA) of the chest was performed with 75 mL Omnipaque-350 intravenous contrast. The dose-length product was 812.27 mGy-cm. Maximum intensity projection 3D-rec onstructions of the aorta and other arteries were constructed by the technologist on a separate works tation. COMPARISON: None. FINDINGS/OBSERVATIONS: PULMONARY ARTERIES: Large bilateral pulmonary emboli are detected, occlusive within the right main pu lmonary artery extending into the right upper and right descending pulmonary artery. Occlusive thrombus is also detected within the left descending pulmonary artery, without extension in to the left ascending pulmonary artery. No saddle pulmonary embolus is present. The main, right and left pulmonary arteries are enlarged, for which pulmonary hypertension is suspect ed. THORACIC AORTA: No aneurysmal dilatation or dissection is present. The great vessels are intact LUNGS: The lungs are clear. MEDIASTINUM: No morphologically suspicious or pathologically enlarged lymph nodes are identified with in the mediastinum or bilateral axilla. BONES OF THE CHEST: No acute fracture. No significant degenerative disease. No lytic or blastic lesions. HEART: Flattening of the interventricular septum is appreciated. The heart is angulated, such that measurement of a right ventricular to left ventricular ratio is hubbard ited. IMPRESSION: Large, bilateral segmental and subsegmental pulmonary emboli. No thoracic aortic dissection. Angulation of the cardiac apex which makes measurement of right heart strain via CT Limited. The pulmonary arteries are enlarged, suggesting pulmonary hypertension. Reviewed, dictated and finalized at location A. IMPRESSION: Large, bilateral segmental and subsegmental pulmonary emboli. No thoracic aortic dissection. Angulation of the cardiac apex which makes measurement of right heart strain vi a CT Limited. The pulmonary arteries are enlarged, suggesting pulmonary hypertension.
[2024-08-08] MEDS: IPRATROPIUM 0.5 MG/ALBUTEROL SULFATE 2.5 MG AMPUL.NEB 3 ML INHALATION (16:13)
[2024-08-08] MEDS: methylPREDNISolone SOD SUCC 125 MG VIAL IV PUSH (16:13)
[2024-08-08 16:24] LABS: Basophils Absolute Auto 0.07 K/mm3 (0.00-0.10); Basophils Percent Auto 0.8 % (0.0-1.0); Eosinophils Percent Auto 2.2 % (1.0-6.0); Hematocrit 41.9 % (35.0-49.0); Hemoglobin 13.6 g/dL (12.0-15.0); Immature Granulocyte Absolute 0.07 K/mm3 (0.00-0.00); Immature Granulocyte Percent A 0.8 % (0.0-0.0); Lymphocytes Absolute Auto 2.33 K/mm3 (1.10-4.50); Lymphocytes Percent Auto 25.4 % (18.0-42.0); Mean Corpuscular HGB Conc 32.5 g/dL (32-36); Mean Corpuscular Hemoglobin 30.4 pg (27.0-31.0); Mean Corpuscular Volume 93.5 fL (78.0-102.0); Mean Platelet Volume 11.2 fl (9.2-11.8); Monocytes Absolute Auto 0.59 K/mm3 (0.10-0.90); Monocytes Percent Auto 6.4 % (2.0-11.0); Neutrophils Absolute Auto 5.92 K/mm3 (1.70-7.20); Neutrophils Percent Auto 64.4 % (50.0-70.0); Platelet Count Result 191 K/mm3 (150-420); Red Blood Count 4.48 M/mm3 (4.20-5.40); Red Cell Distribution Width 13.7 % (11.6-14.4); White Blood Count 9.2 K/mm3 (4.8-10.8)
[2024-08-08 16:39] LABS: D Dimer 4.01 mg/L (0.19-0.50)
[2024-08-08 16:48] LABS: Lactic Acid Reflex 3.4 mmol/L (0.4-2.0)
[2024-08-08 16:51] LABS: Alanine Aminotransferase 39 U/L (14-59); Albumin Level 2.9 g/dL (3.4-5.0); Alkaline Phosphatase 181 U/L (46-116); Anion Gap 14 mmol/L (4-12); Aspartate Amino Transferase 39 U/L (15-37); Bilirubin,Total 0.9 mg/dL (0.00-1.00); Blood Urea Nitrogen 20 mg/dL (7-18); Calcium 9.2 mg/dL (8.5-10.1); Carbon Dioxide 25 mmol/L (21-32); Chloride 99 mmol/L (98-108); Estimated Glomerular Filt Rate 31; NT Pro B Type Natriuretic Pept 93 pg/mL (0-125); Potassium 3.5 mmol/L (3.5-5.1); Sodium 138 mmol/L (136-145); Total Protein 7.1 g/dL (6.4-8.2)
[2024-08-08 16:56] LABS: Influenza A QL RT-PCR Negative (Negative); Influenza B QL RT-PCR Negative (Negative); RSV RNA, RT-PCR Negative (Negative); SARS-CoV-2 RNA PCR Negative (Negative)
[2024-08-08 16:57] LABS: Glucose 522 mg/dL (70-99); Osmolality Calculated 312 mOsm/kg (285-295)
--- OUTSIDE RECORDS SUMMARY | 2024-08-08 17:00 | XMS_ITS | Clinical Summary ---
Author Organization [facility] Address [address] [place] [id number] Care Team Providers Care Boat Engine Mechanic Name Role Phone None, Provider MD Primary Care Provider Unavaila ble Social History Tobacco Use Types Packs/Day Years Used Date Smoking Tobacco: Never Assessed Comments Unknown Sex and Gender Information Value Date Recorded Sex Assigned at Not on file Legal Sex Female 9:56 PM STEAM BOX HAND Gender Identity Not on file Sexual Orientation Not on file Last Filed Vital Signs Vital Sign Reading Time Taken Comments Blood Pressure 124/88 12/05/2014 1:08 PM CDT Pulse 72 12/05/2014 1:08 PM CDT Temperature - - Respiratory Rate - - Oxygen Saturation - - Inhaled Oxygen Concentration - - Weight 139.7 kg (308 lb) 12/05/2014 1:08 PM CDT Height 162.6 cm (5' 4 ) 12/05/2014 1:08 PM CDT Body Mass Index 52.87 12/05/2014 1:08 PM CDT Plan of Treatment Health Maintenance Due Date Last Done Comments Cervical Cancer Screening Pa p Smear (Age 30 to 64) Every 3 Years 1974 Colorectal Cancer Screening Colonoscopy (10 Years) 1974 Annual Physical 1977 Hepatitis C 1992 DTaP, Tdap and Td Vaccines ( 1 - Tdap) 1993 Hepatitis B Vaccines (1 of 3 - 19+ 3-dose series) 1993 Cervical Cancer Screening Pa p with HPV Testing (Age 30 to 64) Every 5 Years 2004 Cervical Cancer Screening with HPV 2004 Mammogram Screening 2014 COVID-19 Vaccine (2023-2 5 season) 2023 Meningococcal B Vaccine Aged Out No l onger eligible based on patient's age to complete this topic Meningococcal Vaccine Aged Out No heber keena eligible based on patient's age to complete this topic Pneumococcal Vaccine: Pediat rics (0 to 5 Years) and At-Risk Patients (6 to 49 Years) Aged Out No longer eligible b ased on patient's age to complete this topic RSV Immunizations Under 20 Months Aged Out No longer eligible based on patient's age to complete this topic Insurance MEDICARE Advance Directives Documents on File Type Date Recorded 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
--- OUTSIDE RECORDS SUMMARY | 2024-08-08 17:00 | XMS_ITS | Encounter Summary ---
Author Organization [facility] Address [facility] [place] [address] Care Team Providers Care Shank Sander Name Role Phone None, Provider Primary Care Provider Unavaila ble Encounter Details Date Type Department Care Team (Latest Contact Info) Description 02/20/2018 Abstract [facility] [place]io ConversionMD Social History Tobacco Use Types Packs/Day Years Used Date Smoking Tobacco: Never Assessed Comments Unknown Sex and Gender Information Value Date Recorded Sex Assigned at Not on file Legal Sex Female 9:56 PM LEGAL INTERN Gender Identity Not on file Sexual Orientation Not on file documented as of this encounter Plan of Treatment Not on file documented as of this encounter Visit Diagnoses Not on filedocumented in this encounter Care Teams Shank Sander Relationship Specialty Start Date End Date None, Provider, PCP - General UNKNOWN PHYSICIAN SPECIALTY 03/03/23 documented as of this encounter
[2024-08-08] MEDS: SODIUM CHLORIDE 0.9% IV 1,000 ML 999 ML IV CONT ×2 (17:10→17:47)
[2024-08-08 17:52] LABS: Add Urine Microscopic? YES; Appearance Urine Sl Cloudy (Clear); Bilirubin Urine Negative (Negative); Blood Urine Negative (Negative); Color Urine Light Yellow (Yellow); Glucose Urine UA 3+ (Negative); Ketones Urine Trace (Negative); Leukocyte Esterase Ur 1+ LEU/UL (Negative); Nitrate Urine Negative (Negative); Protein Urine Negative (Negative); Specific Grav Ur <= 1.005 (1.010-1.020); Urobilinogen Urine 0.2 mg/dL (0.2-1.0)
[2024-08-08 17:58] LABS: Troponin I 200.4 ng/L (0.00-60.4)
--- NOTE | 2024-08-08 17:59 | ECG_ITS ---
Test Date: 2024-08-08 18:06:30 Measurements Intervals [place] Rate: 112 P: 30 MI: 144 QRS: -7 QRSD: 93 T: 25 QT: 351 QTc: 480 Interpretive Statements SINUS TACHYCARDIA POSSIBLE ANTERIOR MYOCARDIAL INFARCTION , OF INDETERMINATE AGE BORDERLINE T WAVE ABNORMALITY- ANTEROLAT/INF LEADS BASELINE ARTIFACT- I, II, III, AVR, AVL, V1-V2 ABNORMAL ECG No previous ECG available for comparison Electronically Signed On 08-08-2024 19:08:28 CDT by Rc Botello D.O.
--- NOTE | 2024-08-08 18:00 | ED.SOB ---
HPI - SOB/Dyspnea General Chief Complaint: Shortness of Breath/Dyspnea Stated Complaint: shortness of breath Time Seen by Provider: 08/08/24 16:00 Source: patient Mode of arrival: ambulatory Limitations: no limitations History of Present Illness HPI Narrative: this is a 48-year-old female with history of diabetes and hypertension presents from her doctor's office with recommendation to be evaluated for dyspnea this been off and on for the last 3 weeks worsening today, the patient has a history of left lower extremity DVT and currently only taking aspirin. Patient has been short of breath with no chest pain no nausea vomiting no abdominal pain no flank pain or dysuria no hematuria. There is currently no fever chills. MD elicited complaint: shortness of breath Pertinent past history: COPD Onset (ago): week(s) Timing: constant Severity: severe Relieving factors: nothing Related Data Home Medications ?Medication ?Instructions ?Recorded ?Confirmed ?Last Taken ?Type Calcium With Vitamin D3 125 mcg PO DAILY 05/17/21 06/09/21 Unknown History atorvastatin 10 mg tablet (Lipitor) 10 mg PO DAILY 05/17/21 06/09/21 Unknown History glimepiride 2 mg tablet 2 mg PO DAILY 05/17/21 06/09/21 Unknown History ketoconazole 2 % topical cream 1 applic topical BID 05/17/21 06/09/21 Unknown History metformin 500 mg tablet,extended 500 mg PO BID 05/17/21 06/09/21 Unknown History release 24 hr metoprolol succinate 25 mg 25 mg PO DAILY 05/17/21 06/09/21 Unknown History tablet,extended release 24 hr montelukast 10 mg tablet 10 mg PO DAILY 05/17/21 06/09/21 Unknown History semaglutide 14 mg tablet (Rybelsus) 14 mg PO DAILY 05/17/21 06/09/21 Unknown History spironolactone 25 25 tablet PO DAILY 05/17/21 06/09/21 Unknown History mg-hydrochlorothiazide 25 mg tablet Allergies Allergy/AdvReac Type Severity Reaction Status Date / Time No Known Allergies Allergy Unknown Verified 08/08/24 15:53 Review of Systems Review of Systems: All systems reviewed & are unremarkable except as noted in HPI and below PMFSH Past Medical History Medical History Diabetes mellitus Family History Family History Father Hypertension Family history of elevated blood lipids Family history of diabetes mellitus in first degree relative Mother Hypertension Family history of elevated blood lipids Cerebrovascular accident Family history of diabetes mellitus in first degree relative Family history of coronary artery disease, Onset Age: 200 Patient's mother is Grandparent Cerebrovascular accident Carcinoma of colon, Onset Age: 53 Family history of coronary artery disease Other Diabetes mellitus Family history of cardiovascular disease Family history of malignant neoplasm Social History Social History Smoking status: Never smoker Alcohol intake: never Exam Const: General: no acute distress and ill appearing Nutritional Appearance: obese Orientation/consciousness: patient oriented x3 Limitations: no limitations and physical limitations HENMT: Head: normal to inspection Eyes: Conjunctivae: conjunctivae normal Chest: Chest palpation & inspection: normal inspection of the chest Resp: Effort & Inspection: normal respiratory effort Auscultation: clear to auscultation bilaterally Cardio: Rate: regular rate Rhythm: regular rhythm GI: GI Palp: Yes Soft to palpation Auscultation: normal bowel sounds : General: Yes bladder normal to palpation Urinary Catheter: Urinary Catheter: patent and draining Back/Spine/Pelvis: Back: no CVA tenderness Skin: General skin exam: normal color Rashes: no rashes Wounds: no wounds Neuro: General: patient oriented x3 and moves all extremities Extrem: General: normal to inspection, no clubbing, cyanosis or edema and no pedal edema Course Course Emergency Course: Patient had chest x-ray performed which shows no acute cardiopulmonary abnormality but had elevated D-dimer that was 4.01 and elevated troponin. , patient was started on IV fluids and had a CTA performed which shows large bilateral pulmonary embolism with some possibility of right heart strain. Patient has a white count of 9.2 with a creatinine 1.75 and GFR glucose of 522 lactic acid of 3.4. Patient was started on IV fluids and heparin. Spoke with arch support technician at [facility] at accepted the patient for transfer. Vital Signs Vital signs: Vital Signs Temperature 36.3 C L 08/08/24 15:42 Pulse Rate 115 H 08/08/24 15:42 Respiratory Rate 20 08/08/24 15:42 Blood Pressure 128/109 H 08/08/24 15:42 Pulse Oximetry 97 08/08/24 15:42 Oxygen Delivery Room Air 08/08/24 15:42 Temperature 36.6 C 08/08/24 22:33 Pulse Rate 111 H 08/08/24 22:33 Respiratory Rate 26 H 08/08/24 22:33 Blood Pressure 134/89 08/08/24 22:33 Pulse Oximetry 98 08/08/24 22:33 Oxygen Delivery Nasal Cannula 08/08/24 22:33 Oxygen Flow Rate 2 08/08/24 22:33 MDM - SOB/Dyspnea Lab Data 08/08/24 16:18 08/08/24 20:27 Labs: Lab Results 08/08/24 08/08/24 08/08/24 Range/Units 16:05 16:06 16:18 WBC 9.2 (4.8-10.8) K/mm3 RBC 4.48 (4.20-5.40) M/mm3 Hgb 13.6 (12.0-15.0) g/dL Hct 41.9 (35.0-49.0) % MCV 93.5 (78.0-102.0) fL MCH 30.4 (27.0-31.0) pg MCHC 32.5 (32-36) g/dL RDW 13.7 (11.6-14.4) % Plt Count 191 (150-420) K/mm3 MPV 11.2 (9.2-11.8) fl Immature Gran % (Auto) 0.8 H (0.0-0.0) % Neut % (Auto) 64.4 (50.0-70.0) % Lymph % (Auto) 25.4 (18.0-42.0) % [place] % (Auto) 6.4 (2.0-11.0) % Eos % (Auto) 2.2 (1.0-6.0) % Baso % (Auto) 0.8 (0.0-1.0) % Lymph # (Auto) 2.33 (1.10-4.50) K/mm3 [place] # (Auto) 0.59 (0.10-0.90) K/mm3 Eos # (Auto) 0.20 (0.02-0.50) K/mm3 Baso # (Auto) 0.07 (0.00-0.10) K/mm3 Abs Immat Gran (auto) 0.07 H (0.00-0.00) K/mm3 Absolute Neuts (auto) 5.92 (1.70-7.20) K/mm3 Absolute Nucleated RBC 0.00 (0.00-0.00) K/mm3 Nucleated RBC % 0.0 (0-0.0) % PT 10.4 (9.50-12.1) Seconds INR 0.9 APTT 29.8 (23.9-30.70) Sec D-Dimer 4.01 H* (0.19-0.50) mg/L Sodium 138 (136-145) mmol/L Potassium 3.5 (3.5-5.1) mmol/L Chloride 99 (98-108) mmol/L Carbon Dioxide 25 (21-32) mmol/L Anion Gap 14 H (4-12) mmol/L BUN 20 H (7-18) mg/dL Creatinine 1.73 H (0.55-1.02) mg/dL Estim Creat Clear Calc Not Reportable Estimated GFR 31 L (59 - ) Glucose 522 H* (70-99) mg/dL POC Capillary Glucose (65-105) mg/dl Calculated Osmolality 312 H (285-295) mOsm/kg Lactic Acid 3.4 H (0.4-2.0) mmol/L Calcium 9.2 (8.5-10.1) mg/dL Total Bilirubin 0.9 (0.00-1.00) mg/dL AST 39 H (15-37) U/L ALT 39 (14-59) U/L Alkaline Phosphatase 181 H (46-116) U/L Troponin I 200.4 H* (0.00-60.4) ng/L NT-Pro-B Natriuret Pep 93 (0-125) pg/mL Total Protein 7.1 (6.4-8.2) g/dL Albumin 2.9 L (3.4-5.0) g/dL Urine Color (Yellow) Urine Appearance (Clear) Urine pH (5.0-8.0) Ur Specific [place] (1.010-1.020) Urine Protein (Negative) Urine Glucose (UA) (Negative) Urine Ketones (Negative) Ur Blood (Man) (Negative) Urine Nitrate (Negative) Urine Bilirubin (Negative) Urine Urobilinogen (0.2-1.0) mg/dL Leukocyte Esterase Rfl (Negative) TORY/UL Urine RBC (0-2) /hpf Urine WBC (0-3) /hpf Ur Squamous Epith Cells (Few) /hpf Urine Bacteria (None) /hpf Influenza A (RT-PCR) Negative (Negative) Influenza B (RT-PCR) Negative (Negative) RSV (RT-PCR) Negative (Negative) SARS-CoV-2 RNA (RT-PCR) Negative (Negative) 08/08/24 08/08/24 08/08/24 Range/Units 17:44 18:37 18:47 WBC (4.8-10.8) K/mm3 RBC (4.20-5.40) M/mm3 Hgb (12.0-15.0) g/dL Hct (35.0-49.0) % MCV (78.0-102.0) fL MCH (27.0-31.0) pg MCHC (32-36) g/dL RDW (11.6-14.4) % Plt Count (150-420) K/mm3 MPV (9.2-11.8) fl Immature Gran % (Auto) (0.0-0.0) % Neut % (Auto) (50.0-70.0) % Lymph % (Auto) (18.0-42.0) % [place] % (Auto) (2.0-11.0) % Eos % (Auto) (1.0-6.0) % Baso % (Auto) (0.0-1.0) % Lymph # (Auto) (1.10-4.50) K/mm3 [place] # (Auto) (0.10-0.90) K/mm3 Eos # (Auto) (0.02-0.50) K/mm3 Baso # (Auto) (0.00-0.10) K/mm3 Abs Immat Gran (auto) (0.00-0.00) K/mm3 Absolute Neuts (auto) (1.70-7.20) K/mm3 Absolute Nucleated RBC (0.00-0.00) K/mm3 Nucleated RBC % (0-0.0) % PT (9.50-12.1) Seconds INR APTT (23.9-30.70) Sec D-Dimer (0.19-0.50) mg/L Sodium (136-145) mmol/L Potassium (3.5-5.1) mmol/L Chloride (98-108) mmol/L Carbon Dioxide (21-32) mmol/L Anion Gap (4-12) mmol/L BUN (7-18) mg/dL Creatinine (0.55-1.02) mg/dL Estim Creat Clear Calc Estimated GFR (59 - ) Glucose (70-99) mg/dL POC Capillary Glucose 447 H (65-105) mg/dl Calculated Osmolality (285-295) mOsm/kg Lactic Acid 1.9 (0.4-2.0) mmol/L Calcium (8.5-10.1) mg/dL Total Bilirubin (0.00-1.00) mg/dL AST (15-37) U/L ALT (14-59) U/L Alkaline Phosphatase (46-116) U/L Troponin I (0.00-60.4) ng/L NT-Pro-B Natriuret Pep (0-125) pg/mL Total Protein (6.4-8.2) g/dL Albumin (3.4-5.0) g/dL Urine Color Light yellow (Yellow) Urine Appearance Sl cloudy A (Clear) Urine pH 6.0 (5.0-8.0) Ur Specific [place] <= 1.005 L (1.010-1.020) Urine Protein Negative (Negative) Urine Glucose (UA) 3+ H (Negative) Urine Ketones Trace H (Negative) Ur Blood (Man) Negative (Negative) Urine Nitrate Negative (Negative) Urine Bilirubin Negative (Negative) Urine Urobilinogen 0.2 (0.2-1.0) mg/dL Leukocyte Esterase Rfl 1+ H (Negative) TORY/UL Urine RBC None seen (0-2) /hpf Urine WBC 16-20 H (0-3) /hpf Ur Squamous Epith Cells Few (Few) /hpf Urine Bacteria 2+ H (None) /hpf Influenza A (RT-PCR) (Negative) Influenza B (RT-PCR) (Negative) RSV (RT-PCR) (Negative) SARS-CoV-2 RNA (RT-PCR) (Negative) 08/08/24 08/08/24 08/08/24 Range/Units 19:33 20:27 20:52 WBC (4.8-10.8) K/mm3 RBC (4.20-5.40) M/mm3 Hgb (12.0-15.0) g/dL Hct (35.0-49.0) % MCV (78.0-102.0) fL MCH (27.0-31.0) pg MCHC (32-36) g/dL RDW (11.6-14.4) % Plt Count (150-420) K/mm3 MPV (9.2-11.8) fl Immature Gran % (Auto) (0.0-0.0) % Neut % (Auto) (50.0-70.0) % Lymph % (Auto) (18.0-42.0) % [place] % (Auto) (2.0-11.0) % Eos % (Auto) (1.0-6.0) % Baso % (Auto) (0.0-1.0) % Lymph # (Auto) (1.10-4.50) K/mm3 [place] # (Auto) (0.10-0.90) K/mm3 Eos # (Auto) (0.02-0.50) K/mm3 Baso # (Auto) (0.00-0.10) K/mm3 Abs Immat Gran (auto) (0.00-0.00) K/mm3 Absolute Neuts (auto) (1.70-7.20) K/mm3 Absolute Nucleated RBC (0.00-0.00) K/mm3 Nucleated RBC % (0-0.0) % PT (9.50-12.1) Seconds INR APTT (23.9-30.70) Sec D-Dimer (0.19-0.50) mg/L Sodium 140 (136-145) mmol/L Potassium 3.6 (3.5-5.1) mmol/L Chloride 103 (98-108) mmol/L Carbon Dioxide 21 (21-32) mmol/L Anion Gap 16 H (4-12) mmol/L BUN 19 H (7-18) mg/dL Creatinine 1.72 H (0.55-1.02) mg/dL Estim Creat Clear Calc Not Reportable Estimated GFR 32 L (59 - ) Glucose 381 H (70-99) mg/dL POC Capillary Glucose 432 H 371 H (65-105) mg/dl Calculated Osmolality 308 H (285-295) mOsm/kg Lactic Acid (0.4-2.0) mmol/L Calcium 9.1 (8.5-10.1) mg/dL Total Bilirubin 0.9 (0.00-1.00) mg/dL AST 30 (15-37) U/L ALT 37 (14-59) U/L Alkaline Phosphatase 181 H (46-116) U/L Troponin I (0.00-60.4) ng/L NT-Pro-B Natriuret Pep (0-125) pg/mL Total Protein 7.4 (6.4-8.2) g/dL Albumin 2.9 L (3.4-5.0) g/dL Urine Color (Yellow) Urine Appearance (Clear) Urine pH (5.0-8.0) Ur Specific [place] (1.010-1.020) Urine Protein (Negative) Urine Glucose (UA) (Negative) Urine Ketones (Negative) Ur Blood (Man) (Negative) Urine Nitrate (Negative) Urine Bilirubin (Negative) Urine Urobilinogen (0.2-1.0) mg/dL Leukocyte Esterase Rfl (Negative) TORY/UL Urine RBC (0-2) /hpf Urine WBC (0-3) /hpf Ur Squamous Epith Cells (Few) /hpf Urine Bacteria (None) /hpf Influenza A (RT-PCR) (Negative) Influenza B (RT-PCR) (Negative) RSV (RT-PCR) (Negative) SARS-CoV-2 RNA (RT-PCR) (Negative) 08/08/24 Range/Units 21:51 WBC (4.8-10.8) K/mm3 RBC (4.20-5.40) M/mm3 Hgb (12.0-15.0) g/dL Hct (35.0-49.0) % MCV (78.0-102.0) fL MCH (27.0-31.0) pg MCHC (32-36) g/dL RDW (11.6-14.4) % Plt Count (150-420) K/mm3 MPV (9.2-11.8) fl Immature Gran % (Auto) (0.0-0.0) % Neut % (Auto) (50.0-70.0) % Lymph % (Auto) (18.0-42.0) % [place] % (Auto) (2.0-11.0) % Eos % (Auto) (1.0-6.0) % Baso % (Auto) (0.0-1.0) % Lymph # (Auto) (1.10-4.50) K/mm3 [place] # (Auto) (0.10-0.90) K/mm3 Eos # (Auto) (0.02-0.50) K/mm3 Baso # (Auto) (0.00-0.10) K/mm3 Abs Immat Gran (auto) (0.00-0.00) K/mm3 Absolute Neuts (auto) (1.70-7.20) K/mm3 Absolute Nucleated RBC (0.00-0.00) K/mm3 Nucleated RBC % (0-0.0) % PT (9.50-12.1) Seconds INR APTT (23.9-30.70) Sec D-Dimer (0.19-0.50) mg/L Sodium (136-145) mmol/L Potassium (3.5-5.1) mmol/L Chloride (98-108) mmol/L Carbon Dioxide (21-32) mmol/L Anion Gap (4-12) mmol/L BUN (7-18) mg/dL Creatinine (0.55-1.02) mg/dL Estim Creat Clear Calc Estimated GFR (59 - ) Glucose (70-99) mg/dL POC Capillary Glucose 325 H (65-105) mg/dl Calculated Osmolality (285-295) mOsm/kg Lactic Acid (0.4-2.0) mmol/L Calcium (8.5-10.1) mg/dL Total Bilirubin (0.00-1.00) mg/dL AST (15-37) U/L ALT (14-59) U/L Alkaline Phosphatase (46-116) U/L Troponin I (0.00-60.4) ng/L NT-Pro-B Natriuret Pep (0-125) pg/mL Total Protein (6.4-8.2) g/dL Albumin (3.4-5.0) g/dL Urine Color (Yellow) Urine Appearance (Clear) Urine pH (5.0-8.0) Ur Specific [place] (1.010-1.020) Urine Protein (Negative) Urine Glucose (UA) (Negative) Urine Ketones (Negative) Ur Blood (Man) (Negative) Urine Nitrate (Negative) Urine Bilirubin (Negative) Urine Urobilinogen (0.2-1.0) mg/dL Leukocyte Esterase Rfl (Negative) TORY/UL Urine RBC (0-2) /hpf Urine WBC (0-3) /hpf Ur Squamous Epith Cells (Few) /hpf Urine Bacteria (None) /hpf Influenza A (RT-PCR) (Negative) Influenza B (RT-PCR) (Negative) RSV (RT-PCR) (Negative) SARS-CoV-2 RNA (RT-PCR) (Negative) Critical Care Time Critical Care Time Critical Care Time: No Discharge Plan Discharge Clinical Impression: Pulmonary embolism, DKA (diabetic ketoacidosis) Patient Disposition: Acute Care Hospital Condition: Stable Patient Language: [place] Prescriptions: No Action atorvastatin [Lipitor] 10 mg tablet 10 mg PO DAILY spironolacton-hydrochlorothiaz 25-25 mg tablet 25 tablet PO DAILY glimepiride 2 mg tablet 2 mg PO DAILY montelukast 10 mg tablet 10 mg PO DAILY metoprolol succinate 25 mg tablet extended release 24 hr 25 mg PO DAILY ketoconazole 2 % cream 1 applic TOPICAL BID metformin 500 mg tablet extended release 24 hr 500 mg PO BID Rybelsus 14 mg tablet 14 mg PO DAILY Calcium With Vitamin D3 125 mcg PO DAILY azithromycin [Zithromax Z-Jonah] 250 mg tablet See Rx Instructions .ROUTE .COMPLEX Qty: 6 0RF Rx Instructions: For 250 mg dose pack: take 500 mg today (day 1), then 250 mg for 4 days (days 2-5) benzonatate 200 mg capsule 200 mg PO TID PRN (Reason: cough) Qty: 20 0RF loperamide [Imodium A-D] 2 mg capsule 2 mg PO Q6H PRN (Reason: loose stool) Qty: 20 0RF azithromycin [Zithromax Z-Jonah] 250 mg tablet See Rx Instructions .ROUTE .COMPLEX Qty: 6 0RF Rx Instructions: For 250 mg dose pack: take 500 mg today (day 1), then 250 mg for 4 days (days 2-5) loperamide [Imodium A-D] 2 mg tablet 2 mg PO Q6H PRN (Reason: loose stool) Qty: 14 0RF benzonatate 200 mg capsule 200 mg PO TID PRN (Reason: cough) Qty: 20 0RF Follow-up/Referrals: Al Brito MD [Primary Care Provider] - Time of Disposition: 20:30
[2024-08-08] MEDS: HEPARIN SODIUM 5,000 UNITS/ML VIAL 10000 UNITS IV PUSH (18:01)
[2024-08-08 18:06] LABS: Bacteria Urine 2+ /hpf; RBC Urine None seen /hpf (0-2); Squamous Epithelial Cell Urine Few /hpf (Few); WBC Urine 16-20 /hpf (0-3)
[2024-08-08 18:13] LABS: INR 0.9; Partial Thromboplastin Time 29.8 Sec (23.9-30.70); Prothrombin Time 10.4 Seconds (9.50-12.1)
[2024-08-08] MEDS: levoFLOXacin 500 MG/D5W 100 ML 500 MG/100 ML BAG 100 MG IVPB (18:19)
[2024-08-08 18:21] LABS: Reflex Lactic Acid Yes or No Add Lactic
[2024-08-08 18:51] LABS: Glucose Point of Care 447 mg/dl (65-105)
[2024-08-08] MEDS: INSULIN HUMAN REGULAR (*BKC) 1,000 UNITS/10 ML VIAL 6.5 UNITS IV PUSH (18:58)
[2024-08-08 18:59] LABS: Lactic Acid 1.9 mmol/L (0.4-2.0)
--- NOTE | 2024-08-08 19:19 | PC.NURSE ---
Report received, communicating w/ pt per paper pad. She is resting and pt given ice chips, call cho at side. Awaiting for [facility] radiology interventionalist to call back. POC explained to pt.
--- NOTE | 2024-08-08 19:35 | PC.NURSE ---
Pts blood sugar was 432, insulin gtt order obtained from ERP.
[2024-08-08] MEDS: SODIUM CHLORIDE 0.9% IV 500 ML 999 ML IV CONT (19:48)
[2024-08-08] MEDS: KCL 20 MEQ/SW 100 ML 100 ML 50 MEQ IVPB (19:49)
[2024-08-08] MEDS: INSULIN REG 100 UNITS/100 ML 100 UNITS/100 ML BAG 13 UNITS IV CONT (19:52)
--- NOTE | 2024-08-08 19:55 | PC.NURSE ---
Pt sister Zuleyka called for update. Pt update given on dx and transfer to [facility]. Awaiting call back for bed assignment. Pt taking ice chips and POC for transfer information given to pt. Pt stated understanding. VSS, continuing to monitor.
[2024-08-08 20:54] LABS: Glucose Point of Care 371 mg/dl (65-105)
--- NOTE | 2024-08-08 20:58 | PC.NURSE ---
Titrted insuling gtt per protocol, BS now 371. Pt has bed at [facility], they will call back shortly for report and give bed assignment.
[2024-08-08 21:17] LABS: Alanine Aminotransferase 37 U/L (14-59); Albumin Level 2.9 g/dL (3.4-5.0); Alkaline Phosphatase 181 U/L (46-116); Anion Gap 16 mmol/L (4-12); Aspartate Amino Transferase 30 U/L (15-37); Bilirubin,Total 0.9 mg/dL (0.00-1.00); Blood Urea Nitrogen 19 mg/dL (7-18); Calcium 9.1 mg/dL (8.5-10.1); Carbon Dioxide 21 mmol/L (21-32); Chloride 103 mmol/L (98-108); Estimated Glomerular Filt Rate 32; Glucose 381 mg/dL (70-99); Osmolality Calculated 308 mOsm/kg (285-295); Potassium 3.6 mmol/L (3.5-5.1); Sodium 140 mmol/L (136-145); Total Protein 7.4 g/dL (6.4-8.2)
--- NOTE | 2024-08-08 21:55 | PC.NURSE ---
Pts BS recheck at 325, ERP notified of pt rooom assignment received, per verbal order from Dr Warren, keep pts insulin gtt at current rate of 14.5 U/hr and do noot increase anymore for transfer, Pt will be given NS at 100ml/hr during transfer. Pt resting, VSS, continuing to monitor until EMS arrives for transfer.
--- NOTE | 2024-08-08 21:59 | PC.NURSE ---
report given to CAROL Tavares at [facility] for transfer. Call paged to [facility] for transfer.
[2024-08-08] MEDS: SODIUM CHLORIDE 0.9% IV 1,000 ML 100 ML IV CONT (22:10)
[2024-08-09 03:28] LABS: Glucose Point of Care 325 mg/dl (65-105)
[2024-08-09 03:28] LABS: Glucose Point of Care 432 mg/dl (65-105)
--- NOTE | 2024-08-10 18:03 | PC.NURSE ---
FINAL URINE CULTURE REPORT; POSITIVE FOR GROUP B STREPTOCOCCUS ISOLATED, PATIENT TRANSFERED TO [facility] ROOM 558. REPORT FAXED TO [phone], SPOKE WITH CHRISTINA MEDINA
== END 2024-08-08 22:33 | disposition short-term general hospital (02) ==
PROVIDERS: Emergency Provider Emergency Medicine; PCP Internal Medicine
DX: I26.99 Other pulmonary embolism without acute cor pulmonale (principal); E11.10 Type 2 diabetes mellitus with ketoacidosis without coma; J44.9 Chronic obstructive pulmonary disease, unspecified; I10 Essential (primary) hypertension; Z86.718 Personal history of other venous thrombosis and embolism; Z79.82 Long term (current) use of aspirin; Z20.822 Contact with and (suspected) exposure to COVID-19
CPT/HCPCS: 36415; 71045; 71275; 80053; 81001; 82948; 83605; 83880; 84484; 85025; 85380; 85610; 85730; 87077; 87086; 87088; 87637; 93005; 96361; 96365; 96366; 96367; 96368; 96375; 99285; J1644; J1815; J1956; J2919; J3480; J7030; J7040; Q9967

== ENCOUNTER 2024-08-30 12:29 | Outpatient (CLI) | payer OTHER, MEDICARE, SELFPAY ==
--- NOTE | ~2024-08-30 | MM_ITS ---
EXAMINATION: MM screening [facility] BI w micheline HISTORY: Screening TECHNIQUE: Craniocaudal and mediolateral oblique 3-D tomosynthesis images were obtained and synthetic 2-D images were generated. CAD analysis was submitted and interpreted. COMPARISON: 10/22/2014 and 10/26/2018 BREAST PARENCHYMAL COMPOSITION: Not Dense: The breasts are almost entirely fatty. FINDINGS: There is no evidence of suspicious mass, calcification, or architectural distortion to sugg est malignancy in either breast. There has been no suspicious interval change. IMPRESSION: 1. No mammographic evidence of malignancy. 2. Recommend routine screening mammography in one year. BI-RADS Category 1: Negative Reviewed, dictated and finalized at location A.
--- OUTSIDE RECORDS SUMMARY | 2024-08-30 12:33 | XMS_ITS | Clinical Summary ---
Author Organization [facility] Address [address] [place] [address] Care Team Providers Care Encyclopedia Research Worker Name Role Phone Al Brito MD Primary Care Provider [phone] Rosanne Barksdale MD Unavailable [phone] Allergies Active Allergy Reactions Criticality Noted Date Comments Penicillin G Hives 08/08/2024 Sister reported allergy Seasonal Runny Nose,Cough 08/08/2024 Asthma flares up Medications atorvastatin (LIPITOR) 10 MG tabletIndicati ons:CAD Take 1 tablet by mouth nightly at bedtime. Indications: CAD 08/14/19 25 Active metoprolol succinate ER (TOPROL-XL) 50 MG 24 hr tabletIndicati ons:Hypertensi on Take 1 tablet by mouth daily. Indications: Hypertension 08/15/19 25 Active montelukast (SINGULAIR) 10 MG tabletIndicati ons:Asthma Take 1 tablet by mouth nightly at bedtime. Indications: Asthma 08/14/19 25 Active pantoprazole EC (PROTONIX) 40 MG tabletIndicati ons:GERD Take 1 tablet by mouth daily. Indications: GERD 08/15/19 25 Active apixaban (ELIQUIS) 5 MG tabletIndicati ons:Pulmonary Embolism Take 2 tablets (10 mg total) by mouth 2 (two) times daily for 3 days, THEN 1 tablet (5 mg total) 2 (two) times daily. Indications: Blockage of Blood Vessel to Lung by a Particle. 192 tablet 08/14/19 25 025 Active Fluticasone-Sa lmeterol (ADVAIR DISKUS IN)Indications :Pulmonary Embolism Inhale 2 puffs into the lungs 2 (two) times daily. Indications: Pulmonary Embolism 08/17/19 25 Active Cyanocobalamin (VITAMIN B12 OR)Indications :Supplement Take 2,500 mcg by mouth daily. Indications: Supplement 08/17/19 25 Active vitamin C (ASCORBIC ACID) 500 MG tabletIndicati ons:Supplement Take 500 mg by mouth daily. Indications: Supplement 07/17/19 25 Active Zinc 50 MG TabIndications :Supplement Take 50 mg by mouth daily. Indications: Supplement 07/17/19 25 Active famotidine (PEPCID) 40 MG tabletIndicati ons:GERD Take 40 mg by mouth daily. Indications: GERD 07/18/19 25 Active Cholecalcifero l (VITAMIN D3) 50 MCG (1999 UT) CapIndications :Supplement Take 1 capsule by mouth daily. Indications: Supplement 07/17/19 25 Active semaglutide (RYBELSUS) 14 MG tabletIndicati ons:Diabetes Mellitus Take 14 mg by mouth every morning. Indications: Diabetes 06/16/19 25 Active loratadine (CLARITIN) 10 MG tabletIndicati ons:Seasonal Allergies Take 10 mg by mouth daily. Indications: Seasonal Allergies 06/16/19 25 Active meclizine (ANTIVERT) 12.5 MG tabletIndicati ons:Dizziness Take 12.5 mg by mouth 2 (two) times daily as needed for Dizziness. Indications: Dizziness 07/17/19 25 Active metFORMIN (GLUCOPHAGE) 500 MG tabletIndicati ons:Diabetes Mellitus Take 500 mg by mouth 2 (two) times daily with meals. Indications: Diabetes 10/17/19 24 Active glipiZIDE (GLUCOTROL) 10 MG tabletIndicati ons:Diabetes Mellitus Take 10 mg by mouth 2 (two) times daily before meals. Indications: Diabetes 02/17/20 24 Active spironolactone -hydroCHLOROth iazide (ALDACTAZIDE) 25-25 MG tabletIndicati ons:Edema Take 1 tablet by mouth daily. Indications: Edema 02/17/20 24 Active norethindrone (AYGESTIN) 5 MG tabletIndicati ons:Hormone Replacement Therapy Take 5 mg by mouth daily. Indications: Hormone Replacement Therapy 02/19/20 24 Active potassium chloride CR (K-TAB) 20 MEQ tabletIndicati ons:Supplement Take 20 mEq by mouth daily. Indications: Supplement 02/19/20 24 Active albuterol sulfate HFA 108 (90 Base) MCG/ACT inhalerIndicat ions:Shortness of breath Inhale 1 puff into the lungs every 6 (six) hours as needed for Shortness of breath or Wheezing. Indications: Shortness of breath 02/19/20 24 Active acetaminophen (TYLENOL) 500 MG tabletIndicati ons:Pain Take 1,000 mg by mouth every 6 (six) hours as needed for Pain. Indications: Pain 08/17/19 25 Active TRIAMCINOLONE ACETONIDE, TOP, EXIndications: Rash Apply 1 Application topically 2 (two) times daily. Indications: Rash 08/29/19 25 Active apixaban (ELIQUIS) 5 MG tabletIndicati ons:Pulmonary Embolism Take 2 tablets (10 mg total) by mouth 2 (two) times daily for 3 days, THEN 1 tablet (5 mg total) 2 (two) times daily. Indications: Blockage of Blood Vessel to Lung by a Particle. 192 tablet 08/14/19 25 025 Discontinued nystatin (MYCOSTATIN) creamIndicatio ns:rash Apply topically 2 (two) times daily for 7 days. Indications: rash 15 g 08/14/19 25 025 Discontinued nystatin (MYCOSTATIN) creamIndicatio ns:rash Apply topically 2 (two) times daily for 7 days. Indications: rash 15 g 08/14/19 25 025 Active Problems Problem Noted Date Diagnosed Date Pulmonary embolism ([facility]) 08/08/2024 Encounters Date Type Department Care Team Description 08/29/2024 10:45 AM CDT Home Care Visit [facility] Home Care [facility] [address] [place] [address] Arlene Arellano, RN SN HOME VISIT 08/27/2024 9:00 AM CDT Home Care Visit [facility] Home Care [facility] [address] [place] [address] Katja Riley OTA COTA HOME VISIT 08/23/2024 10:30 AM CDT [facility] [address] [place] [address] Rosanne Barksdale MD Follow Up (Hospital Follow up) 08/23/2024 Travel 08/21/2024 2:30 PM CDT Home Care Visit [facility] Home Care [place] [address] [place] [address] Katja Riley OTA RDZ HOME VISIT 08/20/2024 12:30 PM CDT Home Care Visit [facility] Home Care [place] [address] [place] [address] Rebel Marin, PT PT INITIAL EVALUATION 08/20/2024 11:15 AM CDT Home Care Visit [facility] [place] [address] [place] [address] Arlene Arellano, RN SN HOME VISIT 08/19/2024 11:00 AM CDT Home Care Visit [place] [address] [place] [address] Russell Richard, OT OT INITIAL EVALUATION 08/16/2024 9:45 AM CDT Home Care Visit [place] [address] [place] [address] Arlene Arellano, RN SN OASIS START OF CARE 08/16/2024 Orders Only [facility] [address] [place] [address] Rosanne Barksdale MD 08/16/2024 Plan of Care Documentation [place] [address] [place] [address] 08/15/2024 Telephone [facility] [address] [place] [address] Rosanne Barksdale MD Appointment Request 08/15/2024 Hospital Follow-up Call [facility] [address] [place] [address] Cris Fall RN 08/13/2024 11:35 AM CDT Home Care Visit [place] [address] [place] [address] Cris Rodriguez LPN [facility]IAISON VISIT 08/09/2024 Travel 08/08/2024 11:44 PM CDT - 08/13/2024 4:30 PM CDT Hospital Encounter [facility] [address] [place] [address] Willy Lerma MD Subramaniyam, Rajamurugan R, MD Sonani, Bhavin V., Paul Vaughan MD Rajendran, Nagesan, MD Discharge Disposition: Home with Home Health Care from Last 3 Months Social History Tobacco Use Types Packs/Day Years Used Date Smoking Tobacco: Never Smokeless Tobacco: Never Tobacco Cessation:Counseling Given: Not Answered OASIS D0700: Social Isolation Answer Da te Recorded Frequency of experiencing loneliness or isolatio n Rarely 08/16/2024 OASIS A1250: Transportation Answer Date Recorded Lack of Transportation (Medical) No 08/16/2024 Lack of Transportation (Non-Medical) No 08/16/2024 Patient Unable or Declines to Respond No 08/16/2024 OASIS B1300: Health Literacy Answer Raheem e Recorded Frequency of needing help to read materials from doctor or pharmacy Often 08/16/2024 [facility] Utilities Answer Date Recorded In the past 12 months has e [employer] gas, oil, or water [employer] threatened to shut off services in your home? No 08/09/2024 Humiliation, Afraid, Rape, and Kick questionnair e Answer Date Recorded Within the last year, have y ou been afraid of your partner or ex-partner? Yes 08/09/2024 Within the last year, have y ou been humiliated or emotionally abused in other ways by your partner or ex-partner? Yes Within the last year, have y ou been kicked, hit, slapped, or otherwise physically hurt by your partner or ex-partner? No 08/09/2024 Within the last year, have y ou been raped or forced to have any kind of sexual activity by your partner or ex-partner? No 08/09/2024 Overall Financial Resource Strain (CARDIA) Answe r Date Recorded How hard is it for you to pa y for the very basics like food, housing, medical care, and heating? Somewhat hard 08/09/2024 Hunger Vital Sign Answer Date Recorded Within the past 12 months, y ou worried that your food would run out before you got the money to buy more. Never true 08/10/19 25 Within the past 12 months, t he food you bought just didn't last and you didn't have money to get more. Never true 08/09/2024 PRAPARE - Transportation Answer Date Re corded In the past 12 months, has l ack of transportation kept you from medical appointments or from getting medications? No 07/17 In the past 12 months, has l ack of transportation kept you from meetings, work, or from getting things needed for daily living? No 08/09/2024 Housing Stability Vital Sign Answer Raheem e Recorded In the last 12 months, was t here a time when you were not able to pay the mortgage or rent on time? No 08/09/2024 In the past 12 months, how m any times have you moved where you were living? 0 08/09/2024 At any time in the past [address] [facility], were you homeless or living in a retirement (including now)? 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 Sex Female 9:56 PM ACCOUNT DEVELOPMENT REPRESENTATIVE Gender Identity Female 08/09/2024 12:30 AM CDT Sexual Orientation Straight 08/09/2024 12 :30 AM CDT Last Filed Vital Signs Vital Sign Reading Time Taken Comments Blood Pressure 144/82 08/29/2024 11:18 AM CDT Pulse 89 08/29/2024 11:18 AM CDT Temperature 36.8 C (98.3 F) 08/29/2024 11:18 AM CDT Respiratory Rate 18 08/29/2024 11:18 AM CDT Oxygen Saturation 96% 08/29/2024 11:18 AM CDT Inhaled Oxygen Concentration - - Weight 110.2 kg (243 lb) 08/23/2024 10:40 AM CDT Height 162.6 cm (5' 4 ) 08/23/2024 10:40 AM CDT Body Mass Index 41.71 08/23/2024 10:40 AM CDT Plan of Treatment Upcoming Encounters Date Type Department Care Team (Late st Contact Info) Description 09/03/2024 10:00 AM CDT Home Care Visit [facility] Home Care [facility] [address], [place] [phone] Katja Riley, INS[employer] [address], [place] [id number] 09/03/2024 11:00 AM CDT Home Care Visit [facility] [address], [place] [address] Arlene Arellano, RN 09/04/2024 12:00 PM CDT Appointment [facility] [address], [place] [address] Russell Richard, OT [address] [place] [address] Health Maintenance Due Date Last Done Comments Cervical Cancer Screening Pa p Smear (Age 30 to 64) Every 3 Years 1974 Colorectal Cancer Screening Colonoscopy (10 Years) 1974 Annual Physical 1977 Hepatitis C 1992 Hepatitis B Vaccines (1 of 3 - 19+ 3-dose series) 1993 Cervical Cancer Screening Pa p with HPV Testing (Age 30 to 64) Every 5 Years 2004 Cervical Cancer Screening wi th HPV 2004 Mammogram Screening 2014 DTaP, Tdap and Td Vaccines ( 3 - Td or Tdap) 11/25/2023 11/24/2013, 07/12/2010 COVID-19 Vaccine (2023-2 5 season) 2023 Pneumococcal Vaccine: Pediatrics (0 to 5 Years) and At-Risk Patients (6 to 49 Years) Aged Out 01/12/2017 No longer eligible b ased on patient's age to complete this topic Meningococcal B Vaccine Aged Out No l onger eligible based on patient's age to complete this topic Meningococcal Vaccine Aged Out No heber keena eligible based on patient's age to complete this topic RSV Immunizations Under 20 Months Aged Out No longer eligible b ased on patient's age to complete this topic Interventions Community Resource Recommendations Community Resource Services Recommended Domains Addressed Status Status Reason/Outcome Date/Time [facility] Prescription Assistance Financial Resource Strain 08/12/2024 1:21 PM CDT [employer]) Financial Assistance Financial Resource Strain 08/12/2024 1:21 PM CDT Contact Ministries Prescription Assistance Financial Resource Strain 08/12/2024 1:21 PM CDT [facility] in [place] Financial Assistance Financial Resource Strain 08/12/2024 1:21 PM CDT [facility] Financial Assistance, Prescription Assistance Financial Resource Strain 08/12/2024 1:[address] [facility] Charities Financial Assistance, Prescription Assistance Financial Resource Strain 08/12/2024 1:21 PM CDT [facility] Financial Assistance, Prescription Assistance, Relationship Counseling Intimate Partner Violence, Financial Resource Strain 08/12/2024 1:21 PM CDT [employer] Financial Assistance Financial Resource Strain 08/12/2024 1:21 PM CDT [place] [employer] Disability Benefits, Process Analyst and Loans, Financial Assistance Financial Resource Strain 08/12/2024 1:21 PM CDT [place] [facility] Disability Benefits Financial Resource Strain 08/12/2024 1:21 PM CDT [facility] Commodity Specialist Financial Resource Strain 08/12/2024 1:21 PM CDT [employer] Commodity Specialist Financial Resource Strain 08/12/2024 1:21 PM CDT [employer] with [employer]abilities in [place] Disability Benefits Financial Resource Strain 08/12/2024 1:21 PM CDT [employer] Disability Benefits Financial Resource Strain 08/12/2024 1:21 PM CDT [employer] Disability Benefits Financial Resource Strain 08/12/2024 1:21 PM CDT Human Rights [employer] (HRA) Disability Benefits Financial Resource Strain 08/12/2024 1:21 PM CDT [facility] Disability Benefits Financial Resource Strain 08/12/2024 1:21 PM CDT [facility] ([facility]) Pediatric Commodity Specialist, Commodity Specialist Financial Resource Strain 08/12/2024 1:21 PM CDT [facility] Commodity Specialist Financial Resource Strain 08/12/2024 1:21 PM CDT Healthcare Fraud ([facility] Agency on Aging for [facility]) Financial Assistance Financial Resource Strain 08/12/2024 1:21 PM CDT [facility] Disability Benefits, Help Understanding Government Programs, Commodity Specialist Financial Resource Strain 08/12/2024 1:[address] [facility] [employer] Prescription Assistance Financial Resource Strain 08/12/2024 1:21 PM CDT [employer] Halfway Benefits Financial Resource Strain 08/12/2024 1:21 PM CDT [facility] Disability Benefits, Financial Assistance Financial Resource Strain 08/12/2024 1:21 PM CDT from Last 12 Months Procedures Procedure Name Priority Date/Time Associated Diagnosis Comments ELECTROCARDIOGRAM (NON MIDMARK ACQUIRED) Routine 08/23/2024 10:50 AM CDT Essential (primary) hypertension POCT GLUCOSE - LIRA DOCKED DEVICE Routine 08/13/2024 11:08 AM CDT TROPONIN, QUANT Routine 08/13/2024 9:59 AM CDT HOME O2 EVAL Routine 08/13/2024 7:45 AM CDT POCT GLUCOSE - LIRA DOCKED DEVICE Routine 08/13/2024 6:25 AM CDT BASIC METABOLIC PANEL Routine 08/13/2024 5:49 AM CDT CBC W/DIFF AUTOMATED Routine 08/13/2024 5:49 AM CDT POCT GLUCOSE - LIRA DOCKED DEVICE Routine 08/12/2024 10:02 PM CDT POCT GLUCOSE - LIRA DOCKED DEVICE Routine 08/12/2024 4:18 PM CDT POCT GLUCOSE - LIRA DOCKED DEVICE Routine 08/12/2024 11:40 AM CDT POCT GLUCOSE - LIRA DOCKED DEVICE Routine 08/12/2024 6:18 AM CDT BASIC METABOLIC PANEL Routine 08/12/2024 1:34 AM CDT CBC W/DIFF AUTOMATED Routine 08/12/2024 1:34 AM CDT POCT GLUCOSE - LIRA DOCKED DEVICE Routine 08/11/2024 8:21 PM CDT POCT GLUCOSE - LIRA DOCKED DEVICE Routine 08/11/2024 4:37 PM CDT POCT GLUCOSE - LIRA DOCKED DEVICE Routine 08/11/2024 11:58 AM CDT CBC W/DIFF AUTOMATED Routine 08/11/2024 11:02 AM CDT PHOSPHORUS, INORGANIC PHOSPHATE Routine 08/11/2024 11:02 AM CDT MAGNESIUM Routine 08/11/2024 11:02 AM CDT COMPREHENSIVE METABOLIC PANEL Routine 08/11/2024 11:02 AM CDT POCT GLUCOSE - LIRA DOCKED DEVICE Routine 08/11/2024 5:45 AM CDT POCT GLUCOSE - LIRA DOCKED DEVICE Routine 08/10/2024 9:14 PM CDT POCT GLUCOSE - LIRA DOCKED DEVICE Routine 08/10/2024 4:06 PM CDT POCT GLUCOSE - LIRA DOCKED DEVICE Routine 08/10/2024 11:14 AM CDT POCT GLUCOSE - LIRA DOCKED DEVICE Routine 08/10/2024 6:30 AM CDT CBC W/DIFF AUTOMATED Routine 08/10/2024 4:47 AM CDT PHOSPHORUS, INORGANIC PHOSPHATE Routine 08/10/2024 4:47 AM CDT MAGNESIUM Routine 08/10/2024 4:47 AM CDT COMPREHENSIVE METABOLIC PANEL Routine 08/10/2024 4:47 AM CDT POCT GLUCOSE - LIRA DOCKED DEVICE Routine 08/09/2024 10:43 PM CDT POCT GLUCOSE - LIRA DOCKED DEVICE Routine 08/09/2024 4:59 PM CDT POCT GLUCOSE - LIRA DOCKED DEVICE Routine 08/09/2024 10:57 AM CDT HC URINALYSIS AUTO W/MICRO Nurse Collected Priority 08/09/2024 10:53 AM CDT USE ECHOCARDIOGRAM W CON Routine 08/09/2024 10:50 AM CDT USV PRADEEP DUPLEX LOW EXT AYAH Today 08/09/2024 9:48 AM CDT HEPARIN, ANTI XA, UFH TIMED 08/09/2024 9:19 AM CDT LACTIC ACID W REFLEX (SEPSIS) STAT 08/09/2024 9:19 AM CDT USV VAST TEAM PICC INSERT >5YR Today 08/09/2024 8:58 AM CDT ECG 12-LEAD STAT 08/09/2024 6:21 AM CDT POCT GLUCOSE - LIRA DOCKED DEVICE Routine 08/09/2024 6:01 AM CDT HEPARIN, ANTI XA, UFH TIMED 08/09/2024 5:50 AM CDT TROPONIN, QUANT TIMED 08/09/2024 5:50 AM CDT PHOSPHORUS, INORGANIC PHOSPHATE Routine 08/09/2024 5:50 AM CDT MAGNESIUM Routine 08/09/2024 5:50 AM CDT COMPREHENSIVE METABOLIC PANEL Routine 08/09/2024 5:50 AM CDT PROTHROMBIN TIME, VENOUS Routine 08/09/2024 5:50 AM CDT CBC W/DIFF AUTOMATED Routine 08/09/2024 5:50 AM CDT POCT ACUTE ARTERIAL PANEL Routine 08/09/2024 4:10 AM CDT POCT GLUCOSE - LIRA DOCKED DEVICE Routine 08/09/2024 1:44 AM CDT D-DIMER, QUANTITATIVE STAT 08/09/2024 1:25 AM CDT PRO-BRAIN NATRIURETIC PEPTIDE STAT 08/09/2024 1:25 AM CDT HEPATIC FUNCTION PANEL Routine 1:25 AM CDT THYROID STIM HORMONE TSH Routine 08/09/2024 1:25 AM CDT PHOSPHORUS, INORGANIC PHOSPHATE Routine 08/09/2024 1:25 AM CDT MAGNESIUM Routine 08/09/2024 1:25 AM CDT TROPONIN, QUANT Routine 08/09/2024 1:25 AM CDT BASIC METABOLIC PANEL Routine 08/09/2024 1:25 AM CDT POCT GLUCOSE - LIRA DOCKED DEVICE Routine 08/09/2024 12:18 AM CDT CALCIUM, IONIZED Routine 08/08/2024 1:25 AM CDT LACTIC ACID Routine 08/08/2024 1:25 AM CDT PROTHROMBIN TIME, VENOUS STAT 08/08/2024 1:25 AM CDT HEPARIN, ANTI XA, UFH STAT 08/08/2024 1:25 AM CDT CBC W/DIFF AUTOMATED STAT 08/08/2024 1:25 AM CDT from Last 3 Months Results * ELECTROCARDIOGRAM (08/23/2024 10:50 AM CDT) 08/23/2024 10:5 0 AM CDT Narrative [facility] - 08/23/2024 5:34 PM CDT [facility] [address] [address] Test Date: 2024-08-23 Pat Name: DEA GALEASKE Department: 105 Room: Gender: Female 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 [employer]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: : 1975 Requested By: ROSANNE BARKSDALE Order Number: [id number] Nikita MD: Rosanne Barksdale Measurements Intervals [place] Rate: 89 P: 21 [place]: 140 QRS: -13 QRSD: 92 T: 4 QT: 368 QTc: 449 Interpretive Statements SINUS RHYTHM Procedure Note Rosanne Barksdale MD - 08/23/2024 [place] [place] [address] Test Date: 2024-08-23 Pat Name: DEA CHAVEZ Department: 105 Room: Gender: Female 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 [facility] GLUCOSE POC 329(H) 70 - 109 08/13/2024 11:13 AM CDT [facility] 08/13/2024 11:0 8 AM CDT us Mercedes Flannery MD POCT ORDERABLES - DEVICE Fi nal Result Performing Organization Address [facility] de Phone Number [facility] [address] [place] [address], [id number] * TROPONIN, QUANT (08/13/2024 9:59 AM CDT) Only the most recent of3 resultswithin the time period is included. [facility] TROPONIN I HIGH SENSITIVITY 13 0 - 53 ng/L 08/13/2024 10:43 AM CDT [facility] 08/13/2024 9:59 AM CDT us Mercedes Flannery MD LABORATORY Final Resul t Performing Organization Address [facility] de Phone Number [facility] [address] [place] [address], [place] [phone] [id number] * (ABNORMAL) BASIC METABOLIC PANEL (08/13/2024 5:49 AM CDT) Only the most recent of3 resultswithin the time period is included. Pathologist [facility] SODIUM S/P/B 140 136 - 145 MMOL/L 08/13/2024 6:50 AM CDT [facility] POTASSIUM S/P/B 3.9 3.5 - 5.1 MMOL/L 08/13/2024 6:50 AM CDT [facility] Comment:MILD HEMOLYSIS, RESU LT MAY BE AFFECTED. CHLORIDE S/P/B 111 97 - 115 MMOL/L 08/13/2024 6:50 AM CDT [facility] CO2 19.8(L) 21.0 - 32.0 MMOL/L 08/13/2024 6:50 AM T [facility] GLUCOSE 135(H) 74 - 106 MG/DL 08/13/2024 6:50 AM T [facility] BUN 13 7 - 18 MG/DL 08/13/2024 6:50 AM T [facility] CREATININE S/P/B 1.25(H) 0.55 - 1.02 MG/DL 08/13/2024 6:50 AM T [facility] CALCIUM S/P/B 9.0 8.5 - 10.1 MG/DL 08/13/2024 6:50 AM T [facility] ANION GAP 9.2 2.0 - 10.0 MMOL/L [id number]|2024-08-30 12:33:00|2024-08-30 12:33:00|XMS_ITS|BKG DAEMON|External Medical Summaries|[id number]|" Encounter Summary Created on: August 30, 2024 Dea Chavez : 1975 Sex: Female Author Organization [facility] Address [address] [place] [address] Care Team Providers Care Encyclopedia Research Worker Name Role Phone None, Provider Primary Care Provider Al Kim MD Primary Care Provider [phone] Rosanne Barksdale MD Unavailable [phone] Encounter Details Date Type Department Care Team (Latest Contact Info) Description 02/20/2018 Abstract [facility] Medical Group Tonio Banks MD Social History Tobacco Use Types Packs/Day Years Used Date Smoking Tobacco: Never Assessed Comments Unknown Sex and Gender Information Value Date Recorded Sex Assigned at Female 08/09/2024 12:29 AM CDT Legal Sex Female 9:56 PM ACCOUNT DEVELOPMENT REPRESENTATIVE Gender Identity Female 08/09/2024 12:30 AM CDT Sexual Orientation Straight 08/09/2024 12 :30 AM CDT documented as of this encounter Plan of Treatment Upcoming Encounters Date Type Department Care Team (Late st Contact Info) Description 09/03/2024 10:00 AM CDT Home Care Visit [facility] [address] [place] [address] Katja Riley, HARLAN [address], [place] [address] 09/03/2024 11:00 AM CDT Home Care Visit [facility] [address] [place] [address] Arlene Arellano, RN 09/04/2024 12:00 PM CDT Appointment [facility] [address], [place] [address] Russell Richard, OT [address] [place], [place] [address] documented as of this encounter Visit Diagnoses Not on filedocumented in this encounter Care Teams Encyclopedia Research Worker Relationship Specialty Start Date End Date None, Provider, MD PCP - General UNKNOWN PHYSICIAN SPECIALTY 03/03/23 08/08/24 Al Brito MD [address] [place] [address] PCP - General INTERNAL MEDICINE 08/09/24 Rosanne Barksdale MD [address] [place] [address] Consulting Physician INTERVENTIONAL CARDIOLOGY 08/15/24 documented as of this encounter "
--- OUTSIDE RECORDS SUMMARY | 2024-08-30 12:33 | XMS_ITS | Encounter Summary ---
Author Organization [facility] Address [address] [place] [address] Care Team Providers Care Green Energy Marketing Analyst Name Role Phone Al Brito MD Primary Care Provider [phone] Alisa Barksdale MD Unavailable [phone] Encounter Details Date Type Department Care Team (Late st Contact Info) Description 08/15/2024 Hospital Follow-up Call [facility] Cardi[facility] Care Unit [address] [place] [address] Cris Fall, RN Social History Tobacco Use Types Packs/Day Years Used Date Smoking Tobacco: Never Smokeless Tobacco: Never OASIS D0700: Social Isolation Answer Da te [...] materials from doctor or pharmacy Often 08/16/2024 [facility] Utilities Answer Date Recorded In the past 12 months has th e electric, gas, oil, or water company threatened to shut off services in your [...] money to buy more. Never true 08/10/19 Within the past 12 months, t he [...] any time in the past 12 m [facility], were you homeless or living in a retirement (including now)? 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 Answer Date of Assessment Author Status No 08/09/2024 12:12 AM CDT Radha Braga RN Active * Do you have serious difficulty walking or climbing stairs? Answer Date of Assessment Author Status Yes 08/09/2024 12:12 AM CDT Radha Braga RN Active * Do you have difficulty dressing or bathing? Answer Date of Assessment Author Status Yes 08/09/2024 12:12 AM CDT Radha Braga RN Active * Because of a physical, mental, or emotional condition, do you have difficulty doing errands alone such as visiting a doctor's office or shopping? Answer Date of Assessment Author Status No 08/09/2024 12:12 AM CDT Radha Braga RN Active documented as of this encounter Mental Status * Because of a physical, mental, or emotional condition, do you have serious difficulty concentrating, remembering, or making decisions? Answer Entry Date Author Status No 08/09/2024 12:12 AM CDT Radha Braga RN Active documented in this encounter Plan of Treatment Upcoming Encounters Date Type Department Care Team (Late st Contact Info) Description 09/03/2024 10:00 AM CDT Home Care Visit [facility] Home Care [facility] [address] [place] [address] Katja Riley, COPY CAMERA OPERATOR [address], [place] [address] 09/03/2024 11:00 AM CDT Home Care Visit [facility] Home Care [facility] [address] [place] [address] Arlene Arellano, RN 09/04/2024 12:00 PM CDT Appointment [facility] Home Care [facility] [address], [place] [address] Russell Richard, OT [address] [place], [place] [id number] documented as of this encounter Visit Diagnoses Not on filedocumented in this encounter Care Teams Green Energy Marketing Analyst Relationship Specialty Start Date End Date Al Brito MD [address] [place] [address] PCP - General INTERNAL MEDICINE 08/09/24 Alisa Barksdale MD [address] [place] [address] Consulting Physician INTERVENTIONAL CARDIOLOGY 08/15/24 documented as of this encounter
--- OUTSIDE RECORDS SUMMARY | 2024-08-30 12:33 | XMS_ITS | Encounter Summary ---
Author Organization [facility] Address [address] [place] [address] Care Team Providers Care Manager Area Name Role Phone Al Brito MD Primary Care Provider [phone] Alisa Barksdale MD Unavailable [phone] Reason for Visit * Auth/Cert (Routine) Specialty Diagnoses / Procedures Referred By Contniki t Referred To Contact Home Health Services Referral ID Status Reason Start Date Expiration Date Visits Re quested Visits Authorized [id number] 1 1 Encounter Details Date Type Department Care Team (Late st Contact Info) Description 08/29/2024 10:45 AM CDT Home Care Visit [facility] Home Care [facility] [address] [place] [address] Arlene Arellano, RN SN HOME VISIT Social History Tobacco Use Types Packs/Day Years [...] materials from doctor or pharmacy Often 08/16/2024 [facility] Utilities Answer Date Recorded In the [...] any time in the past 12 m [facility], were you homeless or living in a correction (including now)? 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 Gender Identity Female 08/09/2024 12:30 AM CDT Sexual Orientation Straight 08/09/2024 12 :30 AM CDT documented as of this encounter Last Filed Vital Signs Vital Sign Reading Time Taken Comments Blood Pressure 144/82 08/29/2024 11:18 AM CDT Pulse 89 08/29/2024 11:18 AM CDT Temperature 36.8 C (98.3 F) 08/29/2024 11:18 AM CDT Respiratory Rate 18 08/29/2024 11:18 AM CDT Oxygen Saturation 96% 08/29/2024 11:18 AM CDT Inhaled Oxygen Concentration - - Weight - - Height - - Body Mass Index - - documented in this encounter Functional Status * Are you [...] 09/03/2024 10:00 AM CDT Home Care Visit [facility] Home Care [facility] [address] [place] [address] Katja Riley, HARLAN [address] [place] [place], [place] [address] 09/03/2024 11:00 AM CDT Home Care Visit [facility] Home Care [facility] [address] [place] [address] Arlene Arellano RN 09/04/2024 12:00 PM CDT Appointment [facility] Home Care [facility] [address] [place] [address] Russell Richard, OT [address] [place] [address] documented as of this encounter Visit Diagnoses Not on filedocumented in this encounter Home Health Visit - Care Plan Visit Details Visit Type -SN - Home Visit Discipline -Fci Problems Problem Description Start Date Status Goals Interventions Pain/Physical Discomfort Disciplines: SN Patient is experiencing pain/physical discomfort. 08/16/2024 Active 1 goal linked to scheduled/documen aldo intervention 2 goal interventions scheduled/documen aldo in this visit Collaboration of Care Disciplines: SN Collaboration for safe care. 08/16/2024 Active 5 goals linked to scheduled/documen aldo interventions 9 goal interventions scheduled/documen aldo in this visit Fall Precautions Disciplines: SN Patient at risk for falls or has had recent fall occurrence(s). 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 08/16/2024 Active 1 goal linked to scheduled/documen aldo intervention 3 goal interventions scheduled/documen aldo in this visit Anticoagulatio n Therapy Disciplines: SN Management of anticoagulation therapy. 08/16/2024 Active 1 goal linked to scheduled/documen aldo intervention 1 problem intervention scheduled/documen aldo in this visit Risk for Skin Breakdown Disciplines: SN Risk for skin breakdown related to decreased endurance, limited mobility. 08/16/2024 Active 1 goal linked to scheduled/documen aldo intervention Goals Goal Associated Problem Outcome Goal Met? Visit Notes Patient's pain/physical discomfort will be reduced to the level of patient's stated goal. Description: - Patient's pain/physical discomfort will be reduced to the level of patient's stated goal by 10/14/24. - Patient's desired pain goal is 0. - Patient and will communicate understanding of the pain management plan by 09/13/24. Pain/Physical Discomfort Progressing No Hosptial Readmission Reduction Description: Hospital Readmission Reduction - High Risk (7 and greater risk factors). Patient's risk number is 8. Patient refuses recommended visit frequency to reduce rehospitalization. Collaboration of Care Met This Shift No Patient safety met through collaboration for safe care. Description: Clinicians will communicate patient care and safety needs during episode of care through 10/14/24. Collaboration of Care Met This Shift No Nutritional Status for Optimal Health Description: Patient will demonstrate adequate nutritional status as evidenced by stabilization of weight and intake of required nutrients for optimal health and functioning by 09/13/24. Collaboration of Care Met This Shift No Patient verbalizes understanding of medication regimen Description: STG: Patient, Caregiver and Family member will communicate understanding of medication regimen by 09/13/24. LTG: Patient, Caregiver and Sister will communicate/demonstrate proper medication dosing, purposes and side effects of all medications by 5. Collaboration of Care Progressing No Patient meets homebound requirements. Description: Patient meets requirements of homebound status as evidenced by dyspnea with exertion, decreased endurance due to recent hospitalization and illness, fall risk, hearing impairment and vision impairment. Collaboration of Care Met This Shift No Patient/caregiver maintains a safe environment. Description: STG: Patient/caregiver will demonstrate ability to maintain a safe environment without injuries/falls by 09/13/24. LTG: Patient / caregiver will have no further falls through 10/14/24. Fall Precautions Met This Shift No Patient's pulmonary care needs met without signs/symptoms of complications. Description: STG: Patient communicate signs and symptoms of pulmonary care by 09/13/24. LTG: Patient's respiratory status will not decline any further through 10/14/24 Alteration in Pulmonary Status - Other Progressing No Adequate Knowledge of Anticoagulation Precautions Description: STG: Patient will communicate proper dosing and purpose of apixaban by 09/13/24. LTG: Patient will communicate s/s of anticoagulation therapy complications to report by 10/14/24. Anticoagulation Therapy Progressing No Patient verbalizes understanding of infection prevention strategies and methods to prevent development or worsening of pressure injuries Description: Patient will communicate understanding of infection prevention strategies by 09/13/24. Patient will communicate methods to prevent development or worsening of pressure injuries by 10/14/24. Risk for Skin Breakdown Progressing No Interventions Intervention Associated Problem/Goal Status Variance Visit Notes Instruct on Management of Pain Description: - Teach principles of pain management and involve Patient and in developing pain control regimen. - Instructed on non-pharmacological pain reduction techniques. - Instruct Patient and on the cause(s) of pain. - Instruct Patient and Hus band to call Home Health for unsatisfactory pain relief. - Offer written material related to pain medication to Patient and . - Instruct Patient and on administration and safe keeping of pain medications and the need to keep accurate rec ords of dosages and times. - Provide Patient and with a recording tool to enter pain level, situation, medication dosage, and effect of administered medications. Problem:Pain/Physica l Discomfort Goal:Patient's pain/physical discomfort will be reduced to the level of patient's stated goal. Completed Teach principles of pain management and involve patient in developing pain control regimen. Instruct patient on the cause(s) of pain. Instruct patient to call agency for unsatisfactory pain relief. Offer written material related to pain medication to pat ient. Instruct patient on administration and safe keeping of pain medications and the need to keep accurate records of dosages and times. Provide patient with a recording tool to enter pain level, situation, medication dosage, and effect of administered medications. Assess Pain Description: -Perform comprehensive pain assessment of patient's level of pain using Numeric pain scale and assess effectiveness of current pain regimen. -Current medical management for pain is acetaminophen, rest and position changes. If no changes or concerns sun ck complete (see Pain Assessment). Problem:Pain/Physica l Discomfort Goal:Patient's pain/physical discomfort will be reduced to the level of patient's stated goal. Completed Denies any pain in the last 24 hours. Hospitalization Risk Description: Instruct Patient, Caregiver and Family member in minimizing hospitalization risk related to History of Falls, Diabetes, Discharged from Hospital or SNF, Needs help managing Medications, More than 2 Secondary Diagnoses, ADL Assistance Needed, Dyspnea and Non-Compliance with Medication Regime. Problem:Collaboratio n of Care Goal:Hosptial Readmission Reduction Completed Assess Vital Signs Description: Obtain and record vital signs. BP: systolic blood pressure <90 or >160; diastolic blood pressure <60 or >90. Temperature: >100.5 F. Pulse: <60 or >100 bpm. Respiratory Rate: <12 or >28 /min. SPO2: <90%. May check SPO2 as needed for initial assessmen t or dyspnea. Problem:Collaboratio n of Care Goal:Patient safety met through collaboration for safe care. Completed VS WNL for patient at this visit. Insurance Verification Description: Verify with patient/caregiver current insurance coverage. Problem:Collaboratio n of Care Goal:Patient safety met through collaboration for safe care. Completed Patient's coverage status: No change in coverage Care Coordination Description: Clinician to review plan of care with patient/caregivers(s). Patient/Caregiver(s) agree(s) to plan of care and agrees to participate in care. Disciplines RN, PT and OT Problem:Collaboratio n of Care Goal:Patient safety met through collaboration for safe care. Completed Plan for Next Visit Description: Next visit plan summation Problem:Collaboratio n of Care Goal:Patient safety met through collaboration for safe care. Completed Next visit scheduled 09/04/24 for disease management teaching, medication teaching and physical assessment. Patient is aware of and agreeable to plan. Advised to call Agency for non-emergent questions/concerns. Skilled Assessment Risk for Injury Description: Evaluate patient's home environment for potential safety risks, and educate Patient and on identified safety risks. Problem:Collaboratio n of Care Goal:Patient safety met through collaboration for safe care. Completed Instruct Home Safety Description: Instruct patient and caregiver on strategies/modification s to home environment. Patient up as tolerated with walker or lesser device or no device as directed. Problem:Collaboratio n of Care Goal:Patient safety met through collaboration for safe care. Completed Medication Reconciliation Description: - Review and identify unnecessary therapeutic duplication. Each clinician to perform bottle check weekly on their first visit of the week. - Patient to take medications from medication box set up by Other: Sister Problem:Collaboratio n of Care Goal:Patient verbalizes understanding of medication regimen Completed Medication reconciliation performed with weekly bottle check. Medication Management Description: - Assess Patient and Family member ability to manage medications. Provide detailed instruction on proper administration and medication management. - Instruct Patient and Family member in medication administration, purpose, dosages, preparation, scheduli ng, side effects, food/drug & drug/drug interactions, storage, and potential complications. Problem:Collaboratio n of Care Goal:Patient verbalizes understanding of medication regimen Completed Home medication management instructed with patient. Patient needs reinforcement. understanding of treatment regimen and the importance of adherence. Report Falls to Provider within 24 Hours Description: Report witnessed or reported falls to provider within 24 hours (Dr. Al Brito). Problem:Fall Precautions Goal:Patient/caregiv er maintains a safe environment. Completed Patient reports no recent fall. Assess Appropriateness for Homecare Description: Assess Patient's ability to remain safe in current environment. Problem:Fall Precautions Goal:Patient/caregiv er maintains a safe environment. Completed Assess Signs and Symptoms Description: - SN assess respiratory rate and effort, lung sounds, changes in vital signs, SpO2, pain, use of accessory muscles.- SN assess for inability to move secretions, air hunger, reduced tolerance for activity, confusion, anxiety. Problem:Alteration in Pulmonary Status - Other Goal:Patient's pulmonary care needs met without signs/symptoms of complications. Completed No acute issues/symptoms identified at this visit. Disease Management Description: - Instruct Patient and Caregiver in deep-breathing and coughing exercises, pursed lip and abdominal breathing, and positioning for optimal breathing pattern.- Instruct Patient and Caregiver on energy conservation strategies and use of assistive devices t o minimize energy expenditure.- Instruct Patient and Caregiver in methods designed to mobilize secretions including incentive spirometer, medications, and mucous membrane care.- Instruct Patient and Caregiver in maintaining dietary balance and eating annabella quent small meals. Problem:Alteration in Pulmonary Status - Other Goal:Patient's pulmonary care needs met without signs/symptoms of complications. Completed Instruct Disease Process Description: - Discuss signs/symptoms, complications, and actions to take with disease progression and if exacerbation occurs. - Instruct Patient and Caregiver about disease mechanisms and progression. Problem:Alteration in Pulmonary Status - Other Goal:Patient's pulmonary care needs met without signs/symptoms of complications. Completed Instruct Anticoagulation Medication Description: - Instruct Patient and Caregiver in anticoagulant medication (Apixaban) including side effects, safety precautions, diet and activity precautions, and proper dosing. - Instruct Patient and Caregiver in dosing procedures as coordinated with the anticoagu lation service, i.e., maintain current dose unless otherwise instructed. Problem:Anticoagulat ion Therapy Completed documented in this encounter Care Teams Manager Area Relationship Specialty Start Date End Date Al Brito MD [address] [place] [id number] PCP - General INTERNAL MEDICINE 08/09/24 Alisa Barksdale MD [address] [place] [address] Consulting Physician INTERVENTIONAL CARDIOLOGY 08/15/24 documented as of this encounter
== END 2024-08-30 12:30 | disposition home or self-care (01) ==
PROVIDERS: PCP Internal Medicine; Visit Provider Internal Medicine
DX: Z12.31 Encounter for screening mammogram for malignant neoplasm of breast (principal)
CPT/HCPCS: 77063; 77067

== ENCOUNTER 2024-10-28 10:49 | Outpatient (CLI) | payer OTHER, MEDICARE, SELFPAY ==
--- OUTSIDE RECORDS SUMMARY | 2024-10-28 10:56 | XMS_ITS | Patient Health Record ---
Author Organization [facility] Address [address] [place], [place] [id number] Care Team Providers Care Board Certified Arts Therapist Name Role Phone JULIENNE PASCAL Unavailable [phone] Daryl Al Unavailable Unavailable Reason For Referral No Information Medications Medication SIG (Take, Route, Frequency, Duration) Notes Start Date End Date Status Saccharomyces boulardii 250 MG Oral Capsule [Florastor] ORAL Saccharomyces boulardii 250 MG Oral Capsule [Florastor]Original MedicationSaccharomyces boulardii 250 MG Oral Capsule [Florastor] *Reorder from [employer] for eRx and Interaction Alerts* 11/23/19 14 Active 14 ACTUAT fluticasone propionate 0.25 MG/ACTUAT / salmeterol 0.05 MG/ACTUAT Dry Powder Inhaler [Advair] INTRAPULMONARY 14 ACTUAT fluticasone propionate 0.25 MG/ACTUAT / salmeterol 0.05 MG/ACTUAT Dry Powder Inhaler [Advair]Original [id number] ACTUAT fluticasone propionate 0.25 MG/ACTUAT / salmeterol 0.05 MG/ACTUAT Dry Powder I 11/23/19 14 Active cetirizine hydrochloride 10 MG Oral Capsule [Zyrtec] ORAL cetirizine hydrochloride 10 MG Oral Capsule [Zyrtec]Original Medicationcetirizine hydrochloride 10 MG Oral Capsule [Zyrtec] *Reorder from [employer] for eRx and Interaction Alerts* 11/23/19 14 Active aspirin 81 MG Delayed Release Oral Tablet ORAL aspirin 81 MG Delayed Release Oral TabletOriginal Medicationaspirin 81 MG Delayed Release Oral Tablet *Reorder from [employer] for eRx and Interaction Alerts* 11/23/19 14 Active fluticasone propionate 0.05 MG/ACTUAT Metered Dose Nasal [place] fluticasone propionate 0.05 MG/ACTUAT Metered Dose Nasal SprayOriginal Medicationfluticasone propionate 0.05 MG/ACTUAT Metered Dose Nasal [place] *Reorder from [employer] for eRx and Interaction Alerts* 11/23/19 14 Active cholecalciferol 0.025 MG Oral Capsule ORAL cholecalciferol 0.025 MG Oral CapsuleOriginal Medicationcholecalciferol 0.025 MG Oral Capsule *Reorder from [employer] for eRx and Interaction Alerts* 11/23/19 14 Active [id number] 200 ACTUAT albuterol 0.09 MG/ACTUAT Metered Dose Inhaler INTRAPULMONARY [id number] 200 ACTUAT albuterol 0.09 MG/ACTUAT Metered Dose InhalerOriginal [id number] 200 ACTUAT albuterol 0.09 MG/ACTUAT Metered Dose Inhaler *Reorder from [employer] for eRx and Interaction Alerts* 11/23/19 14 Active montelukast 10 MG Oral Tablet [Singulair] ORAL montelukast 10 MG Oral Tablet [Singulair]Original Medicationmontelukast 10 MG Oral Tablet [Singulair] *Reorder from [employer] for eRx and Interaction Alerts* 11/23/19 14 Active piperacillin 2000 MG / tazobactam 250 MG Injection [Zosyn] INTRAVENOUS piperacillin 2000 MG / tazobactam 250 MG Injection [Zosyn]Original Medicationpiperacillin 2000 MG / tazobactam 250 MG Injection [Zosyn] *Reorder from [employer] for eRx and Interaction Alerts* 11/23/19 14 Active olopatadine 2 MG/ML Ophthalmic Solution [Pataday] olopatadine 2 MG/ML Ophthalmic Solution [Pataday]Original Medicationolopatadine 2 MG/ML Ophthalmic Solution [Pataday] *Reorder from [employer] for eRx and Interaction Alerts* 11/23/19 14 Active Plan Of Treatment No Information Insurance Providers Payer Name Payer Address Payer Phone Subscriber Number Group Number Insured Name Patient Relationship to Insured Coverage Start Date Coverage End Date [facility] [address] [place] [address] [id number] MANDA CHAVEZ Self - patient is the insured Medicare Part B [facility] [address] [place] [phone] [id number] SCOTT, MANDA Self - patient is the insured
[2024-10-28 11:05] LABS: Hematocrit 40.6 % (35.0-49.0); Hemoglobin 13.5 g/dL (12.0-15.0); Mean Corpuscular HGB Conc 33.3 g/dL (32-36); Mean Corpuscular Hemoglobin 30.7 pg (27.0-31.0); Mean Corpuscular Volume 92.3 fL (78.0-102.0); Platelet Count Result 282 K/mm3 (150-420); Red Blood Count 4.40 M/mm3 (4.20-5.40); White Blood Count 10.5 K/mm3 (4.8-10.8)
[2024-10-28 11:24] LABS: Alanine Aminotransferase 57 U/L (6-35); Albumin Level 3.9 g/dL (3.5-5.1); Alkaline Phosphatase 114 U/L (38-126); Anion Gap 10 mmol/L (4-12); Aspartate Amino Transferase 58 U/L (14-36); Bilirubin,Total 1.4 mg/dL (0.2-1.3); Blood Urea Nitrogen 19 mg/dL (7-17); Calcium 9.3 mg/dL (8.4-10.2); Carbon Dioxide 25 mmol/L (22-30); Chloride 101 mmol/L (98-107); Estimated Glomerular Filt Rate 48; Glucose 185 mg/dL (65-110); Osmolality Calculated 289 mOsm/kg (285-295); Potassium 3.5 mmol/L (3.4-5.0); Sodium 136 mmol/L (137-145); Total Protein 6.6 g/dL (6.3-8.2)
== END 2024-10-28 10:50 | disposition home or self-care (01) ==
LOC: CHSLAB 10:51
PROVIDERS: PCP Internal Medicine; Visit Provider Internal Medicine
DX: N18.32 Chronic kidney disease, stage 3b (principal)
CPT/HCPCS: 36415; 80053; 85027

== ENCOUNTER 2024-11-04 12:33 | Outpatient (CLI) | payer OTHER, MEDICARE, SELFPAY ==
--- NOTE | ~2024-11-04 | US_ITS ---
US renal BI 11/04/2024 13:03 Procedure: Realtime transabdominal ultrasound of the kidneys and bladder. Indication: Chronic kidney disease Comparison: No prior studies for comparison. Findings: Renal echotexture is normal bilaterally without hydronephrosis, contour deforming mass or r enal calculus. There is a left renal cyst measuring 1.5 cm. The right kidney measures 10.7 cm and lef t kidney measures 11.1 cm. Bladder within normal limits. There is fatty infiltration of the liver. Impression: 1: Left renal cyst measuring 1.5 cm. 2: Fatty infiltration of the liver. Reviewed, dictated and finalized at location A. Impression: 1: Left renal cyst measuring 1.5 cm. 2: Fatty infiltration of the liver.
--- OUTSIDE RECORDS SUMMARY | 2024-11-04 12:40 | XMS_ITS | Encounter Summary ---
Author Organization [facility] Address [address] [place] [address] Care Team Providers Care Cut Pressman Name Role Phone Al Brito MD Primary Care Provider [phone] Alisa Barksdale MD Unavailable [phone] Encounter Details Date Type Department Care Team (Late st Contact Info) Description 08/15/2024 Hospital Follow-up Call [facility] Cardiovascular Care Unit [address] [place] [address] Cris Fall, RN Social History [...] materials from doctor or pharmacy Often 08/16/2024 [facility] Utilities Answer Date Recorded In the past [...] any time in the past 12 m [facility], were you homeless or living in a [facility] (including now)? 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 Answer Date of Assessment Author Status No 08/09/2024 12:12 AM BLANCAT Radha Braga RN Active * Do you have serious difficulty walking or climbing stairs? Answer Date of Assessment Author Status Yes 08/09/2024 12:12 AM BLANCAT Radha Braga RN Active * Do you have difficulty dressing or bathing? Answer Date of Assessment Author Status Yes 08/09/2024 12:12 AM BLANCAT Radha Braga RN Active * Because of a physical, mental, or emotional condition, do you have difficulty doing errands alone such as visiting a doctor's office or shopping? Answer Date of Assessment Author Status No 08/09/2024 12:12 AM BLANCAT Radha Braga RN Active documented as of this encounter Mental Status * Because of a physical, mental, or emotional condition, do you have serious difficulty concentrating, remembering, or making decisions? Answer Entry Date Author Status No 08/09/2024 12:12 AM BLANCAT Radha Braga RN Active documented in this encounter Plan of Treatment Not on file documented as of this encounter Visit Diagnoses Not on filedocumented in this encounter Care Teams Cut Pressman Relationship Specialty Start Date End Date Al Brito MD [address] [place] [address] PCP - General INTERNAL MEDICINE 08/09/24 Alisa Barksdale MD [address] [place], [place] [id number] Consulting Physician INTERVENTIONAL CARDIOLOGY 08/15/24 documented as of this encounter
--- OUTSIDE RECORDS SUMMARY | 2024-11-04 12:40 | XMS_ITS | Encounter Summary ---
Author Organization [facility] Address [address] [place] [address] Care Team Providers Care Cover Mat Machine Operator Name Role Phone None, Provider Primary Care Provider Al Kim MD Primary Care Provider [phone] Alisa Barksdale MD Unavailable [phone] Encounter Details Date Type Department Care Team (Latest Contact Info) Description 02/20/2018 Abstract [facility] , Tonio Cheung MD Social History Tobacco Use Types Packs/Day Years Used Date Smoking Tobacco: Never Assessed Comments Unknown Sex and Gender Information Value Date Recorded Sex Assigned at Female 08/09/2024 12:29 AM CDT 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 Gender Identity Female 08/09/2024 12:30 AM CDT Sexual Orientation Straight 08/09/2024 12 :30 AM CDT documented as of this encounter Plan of Treatment Not on file documented as of this encounter Visit Diagnoses Not on filedocumented in this encounter Care Teams Cover Mat Machine Operator Relationship Specialty Start Date End Date None, Provider, PCP - General UNKNOWN PHYSICIAN SPECIALTY 03/03/23 08/08/24 Al Brito MD [address] [place] [address] PCP - General INTERNAL MEDICINE 08/09/24 Alisa Barksdale MD [address] [place], [place] [address] Consulting Physician INTERVENTIONAL CARDIOLOGY 08/15/24 documented as of this encounter
--- OUTSIDE RECORDS SUMMARY | 2024-11-04 12:40 | XMS_ITS | Patient Health Record ---
Author Organization [facility] Address [address] [place], [place] [id number] Care Team Providers Care Credit Collections Rep Name Role Phone JULIENNE PASCAL Unavailable [phone] Daryl Al Unavailable Unavailable Reason For Referral No Information Medications Medication SIG (Take, Route, Frequency, Duration) Notes Start Date End Date Status Saccharomyces boulardii 250 MG Oral Capsule [Florastor] ORAL Saccharomyces boulardii 250 MG Oral Capsule [Florastor]Original MedicationSaccharomyces boulardii 250 MG Oral Capsule [Florastor] *Reorder from [employer] for eRx and Interaction Alerts* 11/23/19 14 Active 14 ACTUAT fluticasone propionate 0.25 MG/ACTUAT / salmeterol 0.05 MG/ACTUAT Dry Powder Inhaler [Advair] INTRAPULMONARY 14 ACTUAT fluticasone propionate 0.25 MG/ACTUAT / salmeterol 0.05 MG/ACTUAT Dry Powder Inhaler [Advair]Original [id number] ACTUAT fluticasone propionate 0.25 MG/ACTUAT / salmeterol 0.05 MG/ACTUAT Dry Powder I 11/23/19 14 Active cetirizine hydrochloride 10 MG Oral Capsule [Zyrtec] ORAL cetirizine hydrochloride 10 MG Oral Capsule [Zyrtec]Original Medicationcetirizine hydrochloride 10 MG Oral Capsule [Zyrtec] *Reorder from [employer] for eRx and Interaction Alerts* 11/23/19 14 Active aspirin 81 MG Delayed Release Oral Tablet ORAL aspirin 81 MG Delayed Release Oral TabletOriginal Medicationaspirin 81 MG Delayed Release Oral Tablet *Reorder from [employer] for eRx and Interaction Alerts* 11/23/19 14 Active fluticasone propionate 0.05 MG/ACTUAT Metered Dose Nasal [place] fluticasone propionate 0.05 MG/ACTUAT Metered Dose Nasal SprayOriginal Medicationfluticasone propionate 0.05 MG/ACTUAT Metered Dose Nasal [place] *Reorder from [employer] for eRx and Interaction Alerts* 11/23/19 14 Active cholecalciferol 0.025 MG Oral Capsule ORAL cholecalciferol 0.025 MG Oral CapsuleOriginal Medicationcholecalciferol 0.025 MG Oral Capsule *Reorder from [employer] for eRx and Interaction Alerts* 11/23/19 14 Active [id number] 200 ACTUAT albuterol 0.09 MG/ACTUAT Metered Dose Inhaler INTRAPULMONARY [id number] 200 ACTUAT albuterol 0.09 MG/ACTUAT Metered Dose InhalerOriginal [id number] 200 ACTUAT albuterol 0.09 MG/ACTUAT Metered Dose Inhaler *Reorder from [employer] for eRx and Interaction Alerts* 11/23/19 14 Active montelukast 10 MG Oral Tablet [Singulair] ORAL montelukast 10 MG Oral Tablet [Singulair]Original Medicationmontelukast 10 MG Oral Tablet [Singulair] *Reorder from [employer] for eRx and Interaction Alerts* 11/23/19 14 Active piperacillin 2000 MG / tazobactam 250 MG Injection [Zosyn] INTRAVENOUS piperacillin 2000 MG / tazobactam 250 MG Injection [Zosyn]Original Medicationpiperacillin 2000 MG / tazobactam 250 MG Injection [Zosyn] *Reorder from [employer] for eRx and Interaction Alerts* 11/23/19 14 Active olopatadine 2 MG/ML Ophthalmic Solution [Pataday] olopatadine 2 MG/ML Ophthalmic Solution [Pataday]Original Medicationolopatadine 2 MG/ML Ophthalmic Solution [Pataday] *Reorder from [employer] for eRx and Interaction Alerts* 11/23/19 14 Active Plan Of Treatment No Information Insurance Providers Payer Name Payer Address Payer Phone Subscriber Number Group Number Insured Name Patient Relationship to Insured Coverage Start Date Coverage End Date [facility] [address] [place] [address] [id number] MANDA CHAVEZ Self - patient is the insured Medicare Part B [facility] [address] [place] [address] [id number] SCOTT, MANDA Self - patient is the insured
--- OUTSIDE RECORDS SUMMARY | 2024-11-04 12:40 | XMS_ITS | Clinical Summary ---
Author Organization [facility] Address [address] [place] [address] Care Team Providers Care Lab Assistant Name Role Phone Al Brito MD Primary Care Provider [phone] Rosanne Barksdale MD Unavailable [phone] Allergies Active Allergy Reactions Criticality Noted Date Comments Penicillin G Hives 08/08/2024 Sister reported allergy Seasonal Runny Nose,Cough 08/08/2024 Asthma flares up Medications atorvastatin (LIPITOR) 10 MG tabletIndicatio ns:CAD Take 1 tablet by mouth nightly at bedtime. Indications: CAD 5 Active metoprolol succinate ER (TOPROL-XL) 50 MG 24 hr tabletIndicatio ns:Hypertension Take 1 tablet by mouth daily. Indications: Hypertension 5 Active montelukast (SINGULAIR) 10 MG tabletIndicatio ns:Asthma Take 1 tablet by mouth nightly at bedtime. Indications: Asthma 5 Active pantoprazole EC (PROTONIX) 40 MG tabletIndicatio ns:GERD Take 1 tablet by mouth daily. Indications: GERD 5 Active apixaban (ELIQUIS) 5 MG tabletIndicatio ns:Pulmonary Embolism Take 2 tablets (10 mg total) by mouth 2 (two) times daily for 3 days, THEN 1 tablet (5 mg total) 2 (two) times daily. Indications: Blockage of Blood Vessel to Lung by a Particle. 192 tablet 5 11/15/19 25 Active Fluticasone-Brant meterol (ADVAIR DISKUS IN)Indications: Pulmonary Embolism Inhale 2 puffs into the lungs 2 (two) times daily. Indications: Pulmonary Embolism 5 Active Cyanocobalamin (VITAMIN B12 OR)Indications: Supplement Take 2,500 mcg by mouth daily. Indications: Supplement 5 Active vitamin C (ASCORBIC ACID) 500 MG tabletIndicatio ns:Supplement Take 500 mg by mouth daily. Indications: Supplement 5 Active Zinc 50 MG TabIndications: Supplement Take 50 mg by mouth daily. Indications: Supplement 5 Active famotidine (PEPCID) 40 MG tabletIndicatio ns:GERD Take 40 mg by mouth daily. Indications: GERD 5 Active Cholecalciferol (VITAMIN D3) 50 MCG (1999 UT) CapIndications: Supplement Take 1 capsule by mouth daily. Indications: Supplement 5 Active semaglutide (RYBELSUS) 14 MG tabletIndicatio ns:Diabetes Mellitus Take 14 mg by mouth every morning. Indications: Diabetes 5 Active loratadine (CLARITIN) 10 MG tabletIndicatio ns:Seasonal Allergies Take 10 mg by mouth daily. Indications: Seasonal Allergies 5 Active meclizine (ANTIVERT) 12.5 MG tabletIndicatio ns:Dizziness Take 12.5 mg by mouth 2 (two) times daily as needed for Dizziness. Indications: Dizziness 5 Active metFORMIN (GLUCOPHAGE) 500 MG tabletIndicatio ns:Diabetes Mellitus Take 500 mg by mouth 2 (two) times daily with meals. Indications: Diabetes 4 Active glipiZIDE (GLUCOTROL) 10 MG tabletIndicatio ns:Diabetes Mellitus Take 10 mg by mouth 2 (two) times daily before meals. Indications: Diabetes 4 Active spironolactone- hydroCHLOROthia zide (ALDACTAZIDE) 25-25 MG tabletIndicatio ns:Edema Take 1 tablet by mouth daily. Indications: Edema 4 Active norethindrone (AYGESTIN) 5 MG tabletIndicatio ns:Hormone Replacement Therapy Take 5 mg by mouth daily. Indications: Hormone Replacement Therapy 4 Active potassium chloride CR (K-TAB) 20 MEQ tabletIndicatio ns:Supplement Take 20 mEq by mouth daily. Indications: Supplement 4 Active albuterol sulfate HFA 108 (90 Base) MCG/ACT inhalerIndicati ons:Shortness of breath Inhale 1 puff into the lungs every 6 (six) hours as needed for Shortness of breath or Wheezing. Indications: Shortness of breath 4 Active acetaminophen (TYLENOL) 500 MG tabletIndicatio ns:Pain Take 1,000 mg by mouth every 6 (six) hours as needed for Pain. Indications: Pain 5 Active TRIAMCINOLONE ACETONIDE, TOP, EXIndications:R aaron Apply 1 Application topically 2 (two) times daily. Indications: Rash 5 Active Active Problems Problem Noted Date Diagnosed Date Pulmonary embolism ([facility] [address]) 08/08/2024 Encounters Date Type Department Care Team Description 09/20/2024 12:30 PM CDT Home Care Visit [address] [address] Arlene Arellano, RN SN OASIS DISCHARGE/ASSESSMENT 09/20/2024 Home Care Visit [address] [address] Arlene Arellano, RN [facility] INTERDISCIPLINARY MT 09/12/2024 10:00 AM CDT Home Care Visit [address] [address] Mayra Vegas LPN SN HOME VISIT 09/04/2024 12:00 PM CDT Home Care Visit [address] [address] Russell Richard OT OT DISCIPLINE DISCHARGE 09/03/2024 11:30 AM CDT Home Care Visit [place] [address] [place] [address] Arlene Arellano, RN SN HOME VISIT 09/03/2024 9:00 AM CDT Home Care Visit [place] [address] [place] [address] Katja Riley OTA COTA HOME VISIT 08/29/2024 10:45 AM CDT Home Care Visit [facility] Home Care [facility] [address] [place] [address] Arlene Arellano, RN SN HOME VISIT 08/27/2024 9:00 AM CDT Home Care Visit [facility] Home Care [facility] [address] [place] [address] Katja Riley, HARLAN RDZ HOME VISIT 08/23/2024 10:30 AM CDT Office Visit [facility] [address] [place] [phone] Rosanne Barksdale MD Follow Up (Hospital Follow up) 08/23/2024 Travel 08/21/2024 2:30 PM CDT Home Care Visit [place] [address] [place] [address] Katja Riley, [employer] RZD HOME VISIT 08/20/2024 12:30 PM CDT Home Care Visit [facility] Home [place] [address] [place] [address] Rebel Marin, PT PT INITIAL EVALUATION 08/20/2024 11:15 AM CDT Home Care Visit [place] [address] [place] [address] Arlene Arellano, RN SN HOME VISIT 08/19/2024 11:00 AM CDT Home Care Visit [place] [address] [place] [address] Russell Richard, OT OT INITIAL EVALUATION 08/16/2024 9:45 AM CDT Home Care Visit [facility] Home [place] [address] [place] [address] Arlene Arellano, RN SN OASIS START OF CARE 08/16/2024 Orders Only [facility] [address] [place] [phone] Rosanne Barksdale MD 08/16/2024 Plan of Care Documentation [facility] Home Care [facility] [address] [place] [address] 08/15/2024 Telephone [facility] [address] [place] [address] Rosanne Barksdale MD Appointment Request 08/15/2024 Hospital Follow-up Call [facility] [address] [place] [address] Cris Fall RN 08/13/2024 11:35 AM CDT Home Care Visit [facility] Home Care [facility] [address] [place] [address] Cris Rodriguez LPN LIAISON VISIT 08/09/2024 Travel 08/08/2024 11:44 PM CDT - 08/13/2024 4:30 PM CDT Hospital Encounter [facility] [address] [place] [address] Roscoe Pérez MD Subramaniyam, Rajamurugan R, MD Sonani, Bhavin V., MD Minhas, Irfan Ul Haq, MD Rajendran, Nagesan, MD Discharge Disposition: Home with Home Health Care from Last 3 Months Social History Tobacco Use Types Packs/Day Years Used Date Smoking Tobacco: Never Smokeless Tobacco: Never Tobacco Cessation:Counseling Given: Not Answered OASIS D0700: Social Isolation Answer Da te Recorded Frequency of experiencing loneliness or isolatio n Never 09/20/2024 OASIS A1250: Transportation Answer Date Recorded Lack of Transportation (Medical) No 09/20/2024 Lack of Transportation (Non-Medical) No 09/20/2024 Patient Unable or Declines to Respond No 09/20/2024 OASIS B1300: Health Literacy Answer Raheem e Recorded Frequency of needing help to read materials from doctor or pharmacy Never 09/20/2024 [facility] Utilities Answer Date Recorded In the past 12 months has th e [employer], gas, oil, or water [employer] threatened to shut off services in your [...] any time in the past 12 m [facility], were you homeless or living in a long term (including now)? 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 Sex Female 9:56 PM [employer] Gender Identity Female 08/09/2024 12:30 AM CDT Sexual Orientation Straight 08/09/2024 12 :30 AM CDT Last Filed Vital Signs Vital Sign Reading Time Taken Comments Blood Pressure 134/72 09/20/2024 12:03 PM CDT Pulse 90 09/20/2024 12:03 PM CDT Temperature 36.2 C (97.2 F) 09/20/2024 12:03 PM CDT Respiratory Rate 16 09/20/2024 12:03 PM CDT Oxygen Saturation 98% 09/20/2024 12:03 PM CDT Inhaled Oxygen Concentration - - Weight 110.2 kg (243 lb) 08/23/2024 10:40 AM CDT Height 162.6 cm (5' 4) 08/23/2024 10:40 AM CDT Body Mass Index 41.71 08/23/2024 10:40 AM CDT Plan of Treatment Health Maintenance Due [...] or Tdap) 11/25/2023 11/24/2013, 07/12/2010 COVID-19 Vaccine (1 - 2023-2 5 season) 2023 Pneumococcal Vaccine: 50+ Years (2 of 2 - PPSV23) 2024 01/12/2017 Zoster Vaccines (1 of 2) 2024 Meningococcal B Vaccine Aged Out No l [...] Recommended Domains Addressed Status Status Reason/Outcome Date/Time [facility] Prescription Assistance Financial Resource Strain Recommended 11/04/2024 1:33 AM CDT [employer]) Financial Assistance Financial Resource Strain Recommended 11/04/2024 1:33 AM CDT [employer] Prescription Assistance Financial Resource Strain Recommended 11/04/2024 1:33 AM CDT [place] [facility] [place] Financial Assistance Financial Resource Strain Recommended 11/04/2024 1:33 AM CDT [facility] Financial Assistance, Prescription Assistance Financial Resource Strain Recommended 11/04/2024 1:33 AM CDT [place] [employer] Financial Assistance, Prescription Assistance Financial Resource Strain Recommended 11/04/2024 1:33 AM CDT [facility] Financial Assistance, Prescription Assistance, Relationship Counseling Intimate Partner Violence, Financial Resource Strain Recommended 11/04/2024 1:33 AM CDT [facility] [employer] Financial Assistance Financial Resource Strain Recommended 11/04/2024 1:33 AM CDT [place] [employer] Disability Benefits, [employer] Loans, Financial Assistance Financial Resource Strain Recommended 11/04/2024 1:33 AM CDT [place] [facility] Disability Benefits Financial Resource Strain Recommended 11/04/2024 1:33 AM CDT [facility] Director Of Individual Giving Financial Resource Strain Recommended 11/04/2024 1:33 AM CDT [employer] Director Of Individual Giving Financial Resource Strain Recommended 11/04/2024 1:33 AM CDT [employer] Citizens with Disabilities in [place] Disability Benefits Financial Resource Strain Recommended 11/04/2024 1:33 AM CDT [place] [employer]) Disability Benefits Financial Resource Strain Recommended 11/04/2024 1:33 AM CDT [facility] Disability Benefits Financial Resource Strain Recommended 11/04/2024 1:33 AM CDT Human Rights [employer] (HRA) Disability Benefits Financial Resource Strain Recommended 11/04/2024 1:33 AM CDT [place] [employer] Disability Benefits Financial Resource Strain Recommended 11/04/2024 1:33 AM CDT [facility] ([facility]) Pediatric Director Of Individual Giving, Director Of Individual Giving Financial Resource Strain Recommended 11/04/2024 1:33 AM CDT [facility] [employer] Services Hotline Director Of Individual Giving Financial Resource Strain Recommended 11/04/2024 1:33 AM CDT Healthcare [employer] ([facility] Agency on Aging for [facility]) Financial Assistance Financial Resource Strain Recommended 11/04/2024 1:33 AM CDT [facility] Dept of Human Services Disability Benefits, Help Understanding Government Programs, Director Of Individual Giving Financial Resource Strain Recommended 11/04/2024 1:33 AM CDT [facility] [employer] Prescription Assistance Financial Resource Strain Recommended 11/04/2024 1:33 AM CDT [employer] [place] [employer] Residential Benefits Financial Resource Strain Recommended 11/04/2024 1:33 AM CDT [facility] Disability Benefits, Financial Assistance Financial Resource Strain Recommended 11/04/2024 1:33 AM CDT from Last 12 Months Procedures Procedure Name Priority Date/Time Associated Diagnosis Comments ELECTROCARDIOGRAM (NON MIDMARK ACQUIRED) Routine 08/23/2024 10:50 AM CDT Essential (primary) hypertension POCT GLUCOSE - DOCKED DEVICE Routine 08/13/2024 11:08 AM CDT TROPONIN, QUANT Routine 08/13/2024 9:59 AM CDT HOME O2 EVAL Routine 08/13/2024 7:45 AM CDT POCT GLUCOSE - DOCKED DEVICE Routine 08/13/2024 6:25 AM CDT BASIC METABOLIC PANEL Routine 08/13/2024 5:49 AM CDT CBC W/DIFF AUTOMATED Routine 08/13/2024 5:49 AM CDT POCT GLUCOSE - DOCKED DEVICE Routine 08/12/2024 10:02 PM CDT POCT GLUCOSE - DOCKED DEVICE Routine 08/12/2024 4:18 PM CDT POCT GLUCOSE - DOCKED DEVICE Routine 08/12/2024 11:40 AM CDT POCT GLUCOSE - DOCKED DEVICE Routine 08/12/2024 6:18 AM CDT BASIC METABOLIC PANEL Routine 08/12/2024 1:34 AM CDT CBC W/DIFF AUTOMATED Routine 08/12/2024 1:34 AM CDT POCT GLUCOSE - DOCKED DEVICE Routine 08/11/2024 8:21 PM CDT POCT GLUCOSE - DOCKED DEVICE Routine 08/11/2024 4:37 PM CDT POCT GLUCOSE - DOCKED DEVICE Routine 08/11/2024 11:58 AM CDT CBC W/DIFF AUTOMATED Routine 08/11/2024 11:02 AM CDT PHOSPHORUS, INORGANIC PHOSPHATE Routine 08/11/2024 11:02 AM CDT MAGNESIUM Routine 08/11/2024 11:02 AM CDT COMPREHENSIVE METABOLIC PANEL Routine 08/11/2024 11:02 AM CDT POCT GLUCOSE - DOCKED DEVICE Routine 08/11/2024 5:45 AM CDT POCT GLUCOSE - DOCKED DEVICE Routine 08/10/2024 9:14 PM CDT POCT GLUCOSE - DOCKED DEVICE Routine 08/10/2024 4:06 PM CDT POCT GLUCOSE - DOCKED DEVICE Routine 08/10/2024 11:14 AM CDT POCT GLUCOSE - DOCKED DEVICE Routine 08/10/2024 6:30 AM CDT CBC W/DIFF AUTOMATED Routine 08/10/2024 4:47 AM CDT PHOSPHORUS, INORGANIC PHOSPHATE Routine 08/10/2024 4:47 AM CDT MAGNESIUM Routine 08/10/2024 4:47 AM CDT COMPREHENSIVE METABOLIC PANEL Routine 08/10/2024 4:47 AM CDT POCT GLUCOSE - DOCKED DEVICE Routine 08/09/2024 10:43 PM CDT POCT GLUCOSE - DOCKED DEVICE Routine 08/09/2024 4:59 PM CDT POCT GLUCOSE - DOCKED DEVICE Routine 08/09/2024 10:57 AM CDT [...] 08/09/2024 6:21 AM CDT POCT GLUCOSE - DOCKED DEVICE Routine 08/09/2024 6:01 AM CDT [...] 08/09/2024 4:10 AM CDT POCT GLUCOSE - DOCKED DEVICE Routine 08/09/2024 1:44 AM CDT [...] 08/09/2024 1:25 AM CDT POCT GLUCOSE - DOCKED DEVICE Routine 08/09/2024 12:18 AM CDT CALCIUM, IONIZED Routine 08/08/2024 1:25 AM CDT LACTIC ACID Routine 08/08/2024 1:25 AM CDT PROTHROMBIN TIME, VENOUS STAT 08/08/2024 1:25 AM CDT HEPARIN, ANTI XA, UFH STAT 08/08/2024 1:25 AM CDT CBC W/DIFF AUTOMATED STAT 08/08/2024 1:25 AM CDT from Last 3 Months Results * ELECTROCARDIOGRAM (08/23/2024 10:50 AM CDT) 08/23/2024 10:5 0 AM CDT Narrative [facility] - 08/23/2024 5:34 PM CDT [facility] [address] [place] [address] Test Date: 2024-08-23 Pat Name: DEA CHAVEZ Department: 105 Room: Gender: Female 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1975 Requested By: ROSANNE BARKSDALE Order Number: [id number] Reading MD: Rosanne Barksdale Measurements Intervals [place] Rate: 89 P: 21 NM: 140 QRS: -13 QRSD: 92 T: 4 QT: 368 QTc: 449 Interpretive Statements SINUS RHYTHM Procedure Note Rosanne Barksdale MD - 08/23/2024 [facility] [address] [place] [address] Test Date: 2024-08-23 Pat Name: DEA CHAVEZ Department: 105 Room: Gender: Female 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 GLUCOSE POC 329(H) 70 - 109 08/13/2024 11:13 AM CDT [facility] 08/13/2024 11:0 8 AM CDT us Mercedes Flannery MD POCT ORDERABLES - DEVICE Fi nal Result Performing Organization Address [facility] Co de Phone Number [facility] [address] [place] [address], [place] [phone] * TROPONIN, QUANT (08/13/2024 9:59 AM CDT) Only the most recent of3 resultswithin the time period is included. TROPONIN I HIGH SENSITIVITY 13 0 - 53 ng/L 08/13/2024 10:43 AM CDT [facility] 08/13/2024 9:59 AM CDT us Mercedes Flannery MD LABORATORY Final Resul t Performing Organization Address [facility] de Phone Number [facility] [address] [place] [address], [place] [phone] * (ABNORMAL) BASIC METABOLIC PANEL (08/13/2024 5:49 AM CDT) Only the most recent of3 resultswithin the time period is included. SODIUM S/P/B 140 136 - 145 MMOL/L 08/13/2024 6:50 AM CDT [facility] POTASSIUM S/P/B 3.9 3.5 - 5.1 MMOL/L 08/13/2024 6:50 AM CDT [facility] Comment:MILD HEMOLYSIS, RESU LT MAY BE AFFECTED. CHLORIDE S/P/B 111 97 - 115 MMOL/L 08/13/2024 6:50 AM CDT [facility] CO2 19.8(L) 21.0 - 32.0 MMOL/L 08/13/2024 6:50 AM CDT [facility] GLUCOSE 135(H) 74 - 106 MG/DL 08/13/2024 6:50 AM CDT [facility] BUN 13 7 - 18 MG/DL 08/13/2024 6:50 AM CDT [facility] CREATININE S/P/B 1.25(H) 0.55 - 1.02 MG/DL 08/13/2024 6:50 AM CDT [facility] CALCIUM S/P/B 9.0 8.5 - 10.1 MG/DL 08/13/2024 6:50 AM CDT [facility] ANION GAP 9.2 2.0 - 10.0 MMOL/L 08/13/2024 6:50 AM CDT [facility] OSMOLALITY (CALC) 292 MOSM/KG 025 6:50 AM T [facility] Comment:REFERENCE RANGE NOT ESTABLISHED GFR ESTIMATE 53(L) >90 ML/MIN/1. 73 M2 08/13/2024 6:50 AM CDT [facility] GFR NOTES GFR REFERENCE S: 08/13/2024 6:50 AM CDT [facility] Comment: THE ESTIMATED GFR IS CALCULATED USING THE 2020 CKD-EPI EQUATION. THE FOLLOWING CATEGORIES FOR GRADING RENAL FUNCTION ARE RECOMMENDED BY THE INTERNATIONAL SOCIETY OF NEPHROLOGY (KDIGO 2012 CLINICAL PRACTICE GUIDELINE). G1,NORMAL OR HIGH: >89 ml/min/1.73 m2 G2,MILDLY DECREASED: 60-89 ml/min/1.73 m2 G3A,MILDLY TO MODERATELY DECREASED: 45-59 ml/min/1.73 m2 G3B,MODERATELY TO SEVERELY DECREASED: 30-44 ml/min/1.73 m2 G4,SEVERELY DECREASED: 15-29 ml/min/1.73 m2 G5,KIDNEY FAILURE: <15 ml/min/1.73 m2 08/13/2024 5:49 AM CDT us Paul Swan MD LABORATORY Final Res ult [facility] [address] [place] [address], [phone] * (ABNORMAL) CBC W/DIFF AUTOMATED (08/13/2024 5:49 AM CDT) Only the most recent of6 resultswithin the time period is included. [facility] Signature WBC 8.22 4.00 - 10.80 x10'3/uL 08/13/2024 6:18 AM CDT [facility] RBC 4.12 4.10 - 5.40 x10'6/uL 08/13/2024 6:18 AM CDT [facility] HGB 12.9 12.0 - 16.0 G/DL 08/13/2024 6:18 AM CDT [facility] HCT 39.9 36.0 - 47.0 % 08/13/2024 6:18 AM CDT [facility] MCV 96.8 78.0 - 100.0 FL 08/13/2024 6:18 AM CDT [facility] MCH 31.3(H) 27.0 - 31.0 PG 08/13/2024 6:18 AM CDT [facility] MCHC 32.3(L) 33.0 - 36.0 G/DL 08/13/2024 6:18 AM CDT [facility] RDW 13.8 11.5 - 14.5 % 08/13/2024 6:18 AM CDT [facility] PLT 160 150 - 350 x10'3/uL 08/13/2024 6:18 AM CDT [facility] MPV 10.8(H) 7.4 - 10.4 FL 08/13/2024 6:18 AM CDT [facility] DIFFERENTIAL TYPE AUTOMATED DIFFERENTIAL 08/13/2024 6:18 AM CDT [facility] SEG NEUTROPHILS 68.0 % 6:18 AM CDT [facility] LYMPHOCYTES 16.1 % 08/13/2024 6:18 AM CDT [facility] MONOCYTES 8.9 % 08/13/2024 6:18 AM CDT [facility] EOSINOPHILS 5.0 % 08/13/2024 6:18 AM CDT [facility] BASOPHILS 0.7 % 08/13/2024 6:18 AM CDT [facility] IMMATURE GRANS % 1.3 % 08/14/19 6:18 AM CDT [facility] ABS. NEUTROPHILS 5.59 1.60 - 8.30 x10'3/uL 08/13/2024 6:18 AM CDT [facility] ABS. LYMPHOCYTES 1.32 0.80 - 4.70 x10'3/uL 08/13/2024 6:18 AM CDT [facility] ABS. MONOCYTES 0.73 0.00 - 1.50 x10'3/uL 08/13/2024 6:18 AM CDT [facility] ABS. EOSINOPHILS 0.41(H) 0.00 - 0.40 x10'3/uL 08/13/2024 6:18 AM CDT [facility] ABS. BASOPHILS 0.06 0.00 - 0.20 x10'3/uL 08/13/2024 6:18 AM CDT [facility] ABS. IMMATURE GRANULOCYTES 0.11(H) 0.00 - 0.03 x10'3/uL 08/13/2024 6:18 AM CDT [facility] ABS. NUCLEATED RBC'S 0.00 0.00 - 0.01 x10'3/uL 08/13/2024 6:18 AM CDT [facility] NRBC % 0.0 % 08/13/2024 6:18 AM CDT [facility] 08/13/2024 5:49 AM CDT us Paul Swan MD LABORATORY Final Res ult [facility] [address] [address], [place] [address] [phone] * (ABNORMAL) COMPREHENSIVE METABOLIC PANEL (08/11/2024 11:02 AM CDT) Only the most recent of3 resultswithin the time period is included. SODIUM S/P/B 140 136 - 145 MMOL/L 08/11/2024 11:59 AM CDT [facility] POTASSIUM S/P/B 3.6 3.5 - 5.1 MMOL/L 08/11/2024 11:59 AM CDT [facility] CHLORIDE S/P/B 111 97 - 115 MMOL/L 08/11/2024 11:59 AM CDT [facility] CO2 20.3(L) 21.0 - 32.0 MMOL/L 08/11/2024 11:59 AM CDT [facility] GLUCOSE 244(H) 74 - 106 MG/DL 08/11/2024 11:59 AM CDT [facility] BUN 12 7 - 18 MG/DL 08/11/2024 11:59 AM CDT [facility] CREATININE S/P/B 1.24(H) 0.55 - 1.02 MG/DL 08/11/2024 11:59 AM CDT [facility] CALCIUM S/P/B 8.7 8.5 - 10.1 MG/DL 08/11/2024 11:59 AM CDT [facility] BILIRUBIN TOTAL S/P/B 0.8 0.2 - 1.0 MG/DL 08/11/2024 11:59 AM CDT [facility] ALKALINE PHOSPHATASE S/P/B 126(H) 39 - 100 U/L 08/11/2024 11:59 AM CDT [facility] AST 75(H) 15 - 37 U/L 08/11/2024 11:59 AM CDT [facility] ALT 43 13 - 56 U/L 08/11/2024 11:59 AM CDT [facility] TOTAL PROTEIN S/P/B 5.9(L) 6.4 - 8.2 G/DL 08/11/2024 11:59 AM CDT [facility] ALBUMIN S/P/B 2.4(L) 3.4 - 5.0 G/DL 08/11/2024 11:59 AM CDT [facility] ANION GAP 8.7 2.0 - 10.0 MMOL/L 08/11/2024 11:59 AM CDT [facility] OSMOLALITY (CALC) 298 MOSM/KG 025 11:59 AM CDT [facility] Comment:REFERENCE RANGE NOT ESTABLISHED GFR ESTIMATE 53(L) >90 ML/MIN/1. 73 M2 08/11/2024 11:59 AM CDT [facility] GFR NOTES GFR REFERENCE S: 08/11/2024 11:59 AM CDT [facility] Comment: THE ESTIMATED GFR IS CALCULATED USING THE 2020 CKD-EPI EQUATION. THE FOLLOWING CATEGORIES FOR GRADING RENAL FUNCTION ARE RECOMMENDED BY THE INTERNATIONAL SOCIETY OF NEPHROLOGY (KDIGO 2012 CLINICAL PRACTICE GUIDELINE). G1,NORMAL OR HIGH: >89 ml/min/1.73 m2 G2,MILDLY DECREASED: 60-89 ml/min/1.73 m2 G3A,MILDLY TO MODERATELY DECREASED: 45-59 ml/min/1.73 m2 G3B,MODERATELY TO SEVERELY DECREASED: 30-44 ml/min/1.73 m2 G4,SEVERELY DECREASED: 15-29 ml/min/1.73 m2 G5,KIDNEY FAILURE: <15 ml/min/1.73 m2 08/11/2024 11:0 2 AM CDT us Huong Barclay MD LABORATORY Fi nal Result [facility] [address] [place] [address], [id number] * PHOSPHORUS, INORGANIC PHOSPHATE (08/11/2024 11:02 AM CDT) Only the most recent of4 resultswithin the time period is included. PHOSPHORUS 3.1 2.5 - 4.9 MG/DL 08/11/2024 11:59 AM CDT [facility] 08/11/2024 11:0 2 AM CDT Huong Barclay MD LABORATORY Fi nal Result Performing Organization Address [facility] Co de Phone Number [facility] [address] [place] [address], [id number] * MAGNESIUM (08/11/2024 11:02 AM CDT) Only the most recent of4 resultswithin the time period is included. MAGNESIUM 1.8 1.6 - 2.6 MG/DL 08/11/2024 11:59 AM CDT [facility] 08/11/2024 11:0 2 AM CDT Huong Barclay MD LABORATORY Fi nal Result Performing Organization Address [facility] de Phone Number [facility] [address] [place] [address], [phone] * (ABNORMAL) URINALYSIS (08/09/2024 10:53 AM CDT) COLOR (U) YELLOW 08/09/2024 11:47 AM CDT [facility] TRANSPARENCY SLIGHTLY CLOUDY 08/09/2024 11:47 AM CDT [facility] SPECIFIC GRAVITY (U) >1.050(H) 1.002 - 1.035 08/09/2024 11:47 AM CDT [facility] U PH 5.5 5 - 8 08/09/2024 11:47 AM CDT [facility] PROTEIN RANDOM (U) 20(A) NEGATIVE 08/09/2024 11:47 AM CDT [facility] GLUCOSE (U) ABOVE MEASUREMENT RANGE(A) NEGATIVE MG/DL 08/09/2024 11:47 AM CDT [facility] KETONES MG/DL (U) 60(A) NEGATIVE 08/09/2024 11:47 AM CDT [facility] BILIRUBIN (U) NEGATIVE NEGATIVE 08/09/2024 11:47 AM CDT [facility] BLOOD (U) NEGATIVE NEGATIVE 08/09/2024 11:47 AM CDT [facility] NITRITES NEGATIVE NEGATIVE 08/09/2024 11:47 AM CDT [facility] UROBILINOGEN NORMAL 0 - 1 EU/DL 08/09/2024 11:47 AM CDT [facility] LEUKOCYTES (U) 3+(A) NEGATIVE 08/09/2024 11:47 AM CDT [facility] RBC/HPF 8(H) 0 - 3 /HPF 08/09/2024 11:47 AM CDT [facility] WBC/HPF >182(H) 0 - 6 /HPF 08/09/2024 11:47 AM CDT [facility] Comment:PLEASE CALL THE LAB WITHIN 2 HOURS IF ACTUAL NUMBER OF CELLS IS REQUIRED. BACTERIA (U) PRESENT /HPF 08/09/2024 11:47 AM CDT [facility] SQUAMOUS EPITHELIALS 20 08/09/2024 11:47 AM CDT [facility] NON SQUAMOUS EPITHELIAL 3 /HPF 08/09/2024 11:47 AM CDT [facility] WBC CLUMPS PRESENT 08/09/2024 11:47 AM CDT [facility] URINE SPECIMEN / Unknown 08/09/2024 10:53 AM CDT Roscoe Pérez MD URINE ORDERABLES Final Result [facility] [address] [place] [address], [phone] * USE ECHOCARDIOGRAM W CON (08/09/2024 10:50 AM CDT) Anatomical Region Laterality Modality NA Echocardiogram 08/09/2024 10:0 6 AM CDT Narrative 08/10/2024 9:17 AM CDT Echocardiography Report Pat.Name: DEA CHAVEZ Pat.ID: [id number] St.Date: 08/09/2024 Refer.: [id number] SORAIDA Sales EWDPROV EWDPROV Exam Time: 10:06:00 AM Study Type:ECHO WITH CARDIAC DOPPLER COMP Height: 64 in Weight: 289 lb BSA: 2.29 m2 Age: 7 1975,48Y Sex: F HR: 102 bpm Sonogrphr: Sasha Hagan. Stat.:Inpatient Room: [facility] CPT - 4: C8929 Reason for Study:hypoxia Procedures: 2D, M-mode, Doppler, Color Flow, Definity was used to enhance endocardial definition. Race: W ++++++++++++++++++++++++++++++++++++ SUMMARY: ++++++++++++++++++++++++++++++++++++ Technically difficult study. The left ventricular size is normal. Estimated left ventricular ejection fraction is 70%. Left ventricular diastolic function is abnormal (grade 1 - impaired relaxation). Wall motion appears normal in all segments. The right ventricular size is normal. Right ventricular systolic function is normal. Inferior vena cava shows >50% collapse with respiration consistent with normal right atrial pressure. Valves not well visualized. ++++++++++++++++++++++++++++++++++++ FINDINGS: ++++++++++++++++++++++++++++++++++++ LV: The left ventricular size is normal. Estimated left ventricular ejection fraction is 70%. Left ventricular diastolic function is abnormal (grade 1 - impaired relaxation). WM: Wall motion appears normal in all segments. RV: The right ventricular size is normal. Right ventricular systolic function is normal. IVS: Intraventricular septum is normal. LA: The left atrium was not well visualized in all views. RA: The right atrium was not well visualized in all views. IAS: Atrial septum not well visualized in all views. MEME: Pericardium not well visualized. AO: The proximal ascending aorta measures 3.0cm. PA: Estimated right atrial pressure of 3 mmHg. PVn: All four pulmonary veins are not well visualized. SVn: Inferior vena cava is normal. Inferior vena cava shows >50% collapse with respiration consistent with normal right atrial pressure. Other: Technically difficult exam due to body habitus and patient positioning. AV: No evidence of aortic valve stenosis. No evidence of aortic valve regurgitation. The aortic valve not well visualized. MV: No evidence of significant mitral regurgitation. No evidence of mitral stenosis. The mitral valve is not well visualized. PV: No evidence of pulmonic regurgitation. Pulmonic valve not well visualized. TV: Structurally normal tricuspid valve. No evidence of tricuspid regurgitation. ++++++++++++++++++++++++++++++++++++ MEASUREMENTS: ++++++++++++++++++++++++++++++++++++ DOPPLER LVOT LVOTpkPG 3 mmHg LVOTmnPG 1 mmHg LVOTpkVel 84.9 cm/s (70-110) LVOT SV 72 ml LVOT TVI 18.5 cm AV Forward Flow AV TVI 22.7 cm AV pkPG 8 mmHg AV pkVel 142 cm/s (100-170) Area (TVI) 3.19 cm2 (3-5) AV mnVel 88.6 cm/s Area (Willy) 2.34 cm2 (3-5)* AV mnPG 4 mmHg MV Forward Flow MV DeTm 95 msec MV E/A 0.9 MV mnPG 2 mmHg MV pkE 87.4 cm/s (60-130) MV pkPG 4 mmHg MV pkA 94.7 cm/s PV Forward Flow PV pkVel 85.5 cm/s (60-90) PV pkPG 3 mmHg Med E' Med e 8.92 cm/s Med E/E' Med E/e 9.8 Aortic Valve Aortic Valve Ar 1.39 Aortic Valve Ve 0.6 AV DI Value 0.8 JENNIFER (VTI) Index Value 1.39 LV Mass 2D Value 129 g LV Mass Onmdf4C Value 56.3 g/m2 2D Left Ventricle LVIDd 3.69 cm (3.6-5.2) LV EF(Bi-Plane) 72.1 % (55-75) LVIDs 2.39 cm (2.3-3.9) LVPW LVPWd 1.04 cm Ventricular Septum IVSd 1.16 cm Aorta Ao Rtd 3.41 cm Ao Asc 3.04 cm (2.1-3.4) LVOT LVOT 2.23 cm Ratios IVS Inferior vena cava IVC Diam 2.03 cm Right Ventricle Right Ventricle 3.94 cm Major [place] 8.9 cm MMODE TA Tricuspid Annul 2.3 cm <Electronic Signature> 08/10/2024 09:17 AM Franny Fiore M.D. Procedure Note Franny Fiore MD - 08/10/2024 Echocardiography Report Pat.Name: DEA CHAVEZ Pat.ID: [id number] .Date: 08/09/2024 Refer.: [id number] SORAIDA Sales EWDPROV EWDPROV Exam Time: 10:06:00 AM Study Type:ECHO WITH CARDIAC DOPPLER COMP Height: 64 in Weight: 289 lb BSA: 2.29 m2 Age: 7 1975,48Y Sex: F HR: 102 bpm Sonogrphr: Sasha Hagan Pat. Stat.:Inpatient Room: [facility] CPT - 4: C8929 Reason for Study:hypoxia Procedures: 2D, M-mode, Doppler, Color Flow, Definity was used to enhance endocardial definition. Race: W ++++++++++++++++++++++++++++++++++++ SUMMARY: ++++++++++++++++++++++++++++++++++++ Technically difficult study. The left ventricular size is normal. Estimated left ventricular ejection fraction is 70%. Left ventricular diastolic function is abnormal (grade 1 - impaired relaxation). Wall motion appears normal in all segments. The right ventricular size is normal. Right ventricular systolic function is normal. Inferior vena cava shows >50% collapse with respiration consistent with normal right atrial pressure. Valves not well visualized. ++++++++++++++++++++++++++++++++++++ FINDINGS: ++++++++++++++++++++++++++++++++++++ LV: The left ventricular size is normal. Estimated left ventricular ejection fraction is 70%. Left ventricular diastolic function is abnormal (grade 1 - impaired relaxation). WM: Wall motion appears normal in all segments. RV: The right ventricular size is normal. Right ventricular systolic function is normal. IVS: Intraventricular septum is normal. LA: The left atrium was not well visualized in all views. RA: The right atrium was not well visualized in all views. IAS: Atrial septum not well visualized in all views. MEME: Pericardium not well visualized. AO: The proximal ascending aorta measures 3.0cm. PA: Estimated right atrial pressure of 3 mmHg. PVn: All four pulmonary veins are not well visualized. SVn: Inferior vena cava is normal. Inferior vena cava shows >50% collapse with respiration consistent with normal right atrial pressure. Other: Technically difficult exam due to body habitus and patient positioning. AV: No evidence of aortic valve stenosis. No evidence of aortic valve regurgitation. The aortic valve not well visualized. MV: No evidence of significant mitral regurgitation. No evidence of mitral stenosis. The mitral valve is not well visualized. PV: No evidence of pulmonic regurgitation. Pulmonic valve not well visualized. TV: Structurally normal tricuspid valve. No evidence of tricuspid regurgitation. ++++++++++++++++++++++++++++++++++++ MEASUREMENTS: ++++++++++++++++++++++++++++++++++++ DOPPLER LVOT LVOTpkPG 3 mmHg LVOTmnPG 1 mmHg LVOTpkVel 84.9 cm/s (70-110) LVOT SV 72 ml LVOT TVI 18.5 cm AV Forward Flow AV TVI 22.7 cm AV pkPG 8 mmHg AV pkVel 142 cm/s (100-170) Area (TVI) 3.19 cm2 (3-5) AV mnVel 88.6 cm/s Area (Willy) 2.34 cm2 (3-5)* AV mnPG 4 mmHg MV Forward Flow MV DeTm 95 msec MV E/A 0.9 MV mnPG 2 mmHg MV pkE 87.4 cm/s (60-130) MV pkPG 4 mmHg MV pkA 94.7 cm/s PV Forward Flow PV pkVel 85.5 cm/s (60-90) PV pkPG 3 mmHg Med E' Med e 8.92 cm/s Med E/E' Med E/e 9.8 Aortic Valve Aortic Valve Ar 1.39 Aortic Valve Ve 0.6 AV DI Value 0.8 JENNIFER (VTI) Index Value 1.39 LV Mass 2D Value 129 g LV Mass [id number] Value 56.3 g/m2 2D Left Ventricle LVIDd 3.69 cm (3.6-5.2) LV EF(Bi-Plane) 72.1 % (55-75) LVIDs 2.39 cm (2.3-3.9) LVPW LVPWd 1.04 cm Ventricular Septum IVSd 1.16 cm Aorta Ao Rtd 3.41 cm Ao Asc 3.04 cm (2.1-3.4) LVOT LVOT 2.23 cm Ratios IVS Inferior vena cava IVC Diam 2.03 cm Right Ventricle Right Ventricle 3.94 cm Major [place] 8.9 cm MMODE TA Tricuspid Annul 2.3 cm <Electronic Signature> 08/10/2024 09:17 AM Franny Fiore M.D. Roscoe Pérez MD ECHO Final Result * USV PRADEEP DUPLEX LOW EXT AYAH (08/09/2024 9:48 AM CDT) Anatomical Region Laterality Modality Extremity Ultrasound 08/09/2024 8:57 AM CDT Narrative 08/09/2024 6:35 PM CDT Vascular Report Pat.Name: DEA CHAVEZ Pat.ID: [id number] St.Date: 08/09/2024 Refer.MD: ROSCOE PÉREZ Exam Time: 8:57:00 AM Study Type:PVI VENOUS DUPLEX SCAN-LEGS BILAT Age: 6 1975,48Y Sex: F Sonogrphr: Azalea White, RVT Pat. Stat.:Inpatient Room: [facility] CPT - 4: 34615 Venous Duplex LE/UE Reason for Study:Pulmonary embolism (PE) Race: W ++++++++++++++++++++++++++++++++++++ FINDINGS: ++++++++++++++++++++++++++++++++++++ Rt Lower Ext: No evidence of acute or chronic thrombosis noted in the deep or superficial veins in the right lower extremity. Comments: Technically difficult study due to body habitus and pain intolerence to compression manuevers. <Electronic Signature> 08/09/2024 06:35 PM Franny Fiore M.D. Procedure Note Franny Fiore MD - 08/09/2024 Vascular Report Pat.Name: DEA CHAVEZ Pat.ID: [id number] St.Date: 08/09/2024 Refer.MD: ROSCOE PÉREZ Exam Time: 8:57:00 AM Study Type:PVI VENOUS DUPLEX SCAN-LEGS BILAT Age: 6 1975,48Y Sex: F Sonogrphr: Azalea White, RVT Pat. Stat.:Inpatient Room: [facility] 2 CPT - 4: 09558 Venous Duplex LE/UE Reason for Study:Pulmonary embolism (PE) Race: W ++++++++++++++++++++++++++++++++++++ FINDINGS: ++++++++++++++++++++++++++++++++++++ Rt Lower Ext: No evidence of acute or chronic thrombosis noted in the deep or superficial veins in the right lower extremity. Comments: Technically difficult study due to body habitus and pain intolerence to compression manuevers. <Electronic Signature> 08/09/2024 06:35 PM Franny Fiore M.D. Roscoe Pérez MD VASC Final Result * LACTIC ACID W REFLEX (SEPSIS) (08/09/2024 9:19 AM CDT) LACTIC ACID VENOUS 1.4 0.4 - 2.0 MMOL/L 08/09/2024 10:00 AM CDT [facility] 08/09/2024 9:19 AM CDT Roscoe Pérez MD LABORATORY Final Result Performing Organization Address [facility] Co de Phone Number [facility] [address] [place] [address], [phone] * (ABNORMAL) HEPARIN, ANTI XA, UFH (08/09/2024 9:19 AM CDT) Only the most recent of3 resultswithin the time period is included. HEPARIN ANTI XA UFH 0.06(L) 0.30 - 0.70 IU/ML 08/09/2024 9:44 AM CDT [facility] Comment: UFH Therapeutic Anti Xa Ranges: Medical Therapeutic Range: 0.30 - 0.70 IU/mL Cardiac Therapeutic Range: 0.30 - 0.50 IU/mL Neuro Therapeutic Range: 0.20 - 0.40 IU/mL 08/09/2024 9:19 AM CDT Huong Barclay MD LABORATORY Fi nal Result Performing Organization Address City/[facility]/ZIP Co de Phone Number [facility] [address] [place] [address], [phone] * USV VAST TEAM PICC INSERT >5YR (08/09/2024 8:58 AM CDT) Anatomical Region Laterality Modality NA Vascular Ultraso und 08/09/2024 8:05 AM CDT Narrative 08/09/2024 8:05 AM CDT This report does not contain a radiologist's interpretation. Please review associated procedure and/or operative report. Procedure Note Tonio Childress MD - 08/09/2024 This report does not contain a radiologist's interpretation. Please review associated procedure and/or operative report. 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: : 1975 Requested By: ROSCOE PÉREZ Order Number: [id number] Reading MD: Donald Martinez Measurements Intervals [place] Rate: 101 P: 47 NM: 139 QRS: 2 QRSD: 87 T: -6 QT: 388 QTc: 504 Interpretive Statements SINUS TACHYCARDIA MODERATE T-WAVE ABNORMALITY, CONSIDER ANTERIOR ISCHEMIA Procedure Note Donald Martinez MD - 08/09/2024 [facility] [address] [place] [address] Test Date: 2024-08-09 Pat Name: DEAANGELA GALEASKE Department: 1 Room: [place] [address] Gender: Female 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 Pathologist [facility] PROTIME 12.0 9.4 - 12.5 SEC 08/09/2024 6:34 AM CDT [facility] INR 1.0 0.8 - 1.1 08/09/2024 6:34 AM CDT [facility] 08/09/2024 5:50 AM CDT Roscoe Pérez MD LABORATORY Final Result Performing Organization Address City/[facility]/ZIP Co de Phone Number [facility] [address] [place] [address], [phone] * (ABNORMAL) POCT ACUTE ARTERIAL PANEL (08/09/2024 4:10 AM CDT) Pathologist [facility] SODIUM WHOLE BLOOD 136(L) 138 - 146 mmol/L 08/09/2024 4:12 AM CDT [facility] POTASSIUM WHOLE BLOOD 3.6 3.5 - 4.9 mmol/L 08/09/2024 4:12 AM CDT [facility] CA IONIZED WH BLOOD 1.23 1.12 - 1.32 mmol/L 08/09/2024 4:12 AM CDT [facility] POC PH ARTERIAL 7.384 7.35 - 7.45 08/09/2024 4:12 AM CDT [facility] POC PCO2 ARTERIAL 32.3(L) 35.0 - 45.0 MMHG 08/09/2024 4:12 AM CDT [facility] POC PO2 ARTERIAL 112(H) 80 - 105 MMHG 08/09/2024 4:12 AM CDT [facility] POC HCO3 ARTERIAL 19.3(L) 22 - 26 MMOL/L 08/09/2024 4:12 AM CDT [facility] POC TCO2 ARTERIAL 20(L) 23 - 27 MMOL/L 08/09/2024 4:12 AM CDT [facility] POC BASE DEFICIT ARTERIAL 6(H) 0 - 2 MMOL/L 08/09/2024 4:12 AM CDT [facility] POC HEMATOCRIT 41 38 - 51 % 08/09/2024 4:12 AM CDT [facility] TIME TEST WAS PERFORMED: 410 08/09/2024 4:12 AM CDT [facility] 08/09/2024 4:10 AM CDT Huong Barclay MD POCT ORDERABLES - DEVICE Final Result Performing Organization Address City/State/[facility] Co de Phone Number [facility] [address] [place] [address], [place] [phone] * (ABNORMAL) PRO-BRAIN NATRIURETIC PEPTIDE (08/09/2024 1:25 AM CDT) PRO-B TYPE NATRIURETIC PEPTIDE 933(H) <125 PG/ML 08/09/2024 2:23 AM CDT [facility] Comment: AGE INDEPENDENT: <300 PG/ML HAS A 99% NEGATIVE PREDICTIVE VALUE FOR EXCLUDING ACUTE CHF <50 YEARS: >450 PG/ML IS CONSISTENT WITH ACUTE CHF 50-75 YEARS: >900 PG/ML IS CONSISTENT WITH ACUTE CHF >75 YEARS: >1800 PG/ML IS CONSISTENT WITH ACUTE CHF IN PATIENTS WITH RENAL INSUFFICIENCY (GFR <60), >1200 PG/ML YIELDS A DIAGNOSTIC SENSITIVITY AND SPECIFICITY OF 89% AND 72% FOR ACUTE CHF. 08/09/2024 1:25 AM CDT us Roscoe Pérez MD LABORATORY Final Result [facility] [address] [place] [address], [phone] * (ABNORMAL) HEPATIC FUNCTION PANEL (08/09/2024 1:25 AM CDT) BILIRUBIN TOTAL S/P/B 0.9 0.2 - 1.0 MG/DL 08/09/2024 2:23 AM CDT [facility] BILIRUBIN DIRECT S/P/B 0.3(H) 0.0 - 0.2 MG/DL 08/09/2024 2:23 AM CDT [facility] ALKALINE PHOSPHATASE S/P/B 150(H) 39 - 100 U/L 08/09/2024 2:23 AM CDT [facility] AST 32 15 - 37 U/L 08/09/2024 2:23 AM CDT [facility] ALT 30 13 - 56 U/L 08/09/2024 2:23 AM CDT [facility] TOTAL PROTEIN S/P/B 7.0 6.4 - 8.2 G/DL 08/09/2024 2:23 AM CDT [facility] ALBUMIN S/P/B 2.9(L) 3.4 - 5.0 G/DL 08/09/2024 2:23 AM CDT [facility] 08/09/2024 1:25 AM CDT Roscoe Pérez MD LABORATORY Final Result Performing Organization Address [facility] Co de Phone Number [facility] [address] [place] [address], [phone] * (ABNORMAL) D-DIMER, QUANTITATIVE (08/09/2024 1:25 AM CDT) D-DIMER 2,339(H) 0 - 500 ng{FEU}/mL 08/09/2024 3:15 AM CDT [facility] EXCLUSION STATEMENT 08/09/2024 3:15 AM CDT [facility] Comment: D-Dimer values less than or equal to 500 ng/mL FEU have a negative predictive value of >95% for exclusion of deep vein thrombosis and pulmonary embolism. In patients over 50 (who tend to have higher normal baseline D-Dimer values), recent studies suggest age-adjusted D-Dimer cutoff values (calculated as: age [years] x 10 ng/mL) result in equivalent outcomes and no additional false negative findings. 08/09/2024 1:25 AM CDT us Roscoe Pérez MD LABORATORY Final Result Performing Organization Address [facility] Co de Phone Number [facility] [address] [place] [address], [phone] * THYROID STIM HORMONE, TSH (08/09/2024 1:25 AM CDT) TSH 0.634 0.358 - 3.740 uIU/ML 08/09/2024 2:23 AM CDT [facility] Comment: ASSAY PERFORMED BY CHEMILUMINESCENCE METHODOLOGY USING SIEMENS DIMENSION VISTA REAGENT. PATIENT RESULTS DETERMINED BY ASSAYS USING DIFFERENT MANUFACTURERS FOR METHODS MAY NOT BE COMPARABLE. 08/09/2024 1:25 AM CDT us Roscoe Pérez MD LABORATORY Final Result Performing Organization Address [facility] Co de Phone Number [facility] [address] [place] [address], [place] [phone] * (ABNORMAL) LACTIC ACID - SINGLE (08/08/2024 1:25 AM CDT) LACTIC ACID VENOUS 2.1(H) 0.4 - 2.0 MMOL/L 08/09/2024 2:08 AM CDT [facility] Comment: AN ORDER FOR A REPEAT LACTIC ACID TEST IS REQUIRED WITHIN 6 HOURS OF DIAGNOSIS ON A PATIENT WITH SEVERE SEPSIS. 08/08/2024 1:25 AM CDT us Roscoe Pérez MD LABORATORY Final Result Performing Organization Address City/[facility]/ZIP Co de Phone Number [facility] [address] [place] [address], [phone] * CALCIUM, IONIZED (08/08/2024 1:25 AM CDT) CALCIUM IONIZED 1.17 1.15 - 1.33 MMOL/L 08/09/2024 1:46 AM CDT [facility] 08/08/2024 1:25 AM CDT us Roscoe Pérez MD LABORATORY Final Result Performing Organization Address [facility] de Phone Number [facility] [address] [place] [address], [phone] from Last 3 Months Insurance MEDICARE [facility] [place] [id number] Advance Directives Documents on File Type Date Recorded Patient Top Frame Fitter Expl anation Power of [employer] Developer Advance Directives and Living Will 08/20/2024 2:51 PM Advance Directives and Living Will 12/29/2013 POWER OF [employer]F [employer]ER[employer] R [employer] C[employer] Advance Directives and Living Will 12/29/2013 Advance Directives and Living Will 11/22/2013 POWER OF [employer]F [employer] C[employer] * Full Code (Latest Code Status on File) Date Activated Date Inactivated Comments 08/16/2024 4:00 PM * Full Code Date Activated Date Inactivated Comments 08/08/2024 11:59 PM 08/13/2024 8:11 PM Care Teams Lab Assistant Relationship Specialty Start Date End Date Al Brito MD [address] [place] [address] PCP - General INTERNAL MEDICINE 08/09/24 Rosanne Barksdale MD [address], [place] [phone] Consulting Physician INTERVENTIONAL CARDIOLOGY 08/15/24
== END 2024-11-04 12:34 | disposition home or self-care (01) ==
LOC: CHSIMG 12:35
PROVIDERS: PCP Internal Medicine
DX: N18.30 Chronic kidney disease, stage 3 unspecified (principal); K76.0 Fatty (change of) liver, not elsewhere classified
CPT/HCPCS: 76775